=== PATIENT | female | born 1975 | race Caucasian/White ===

== ENCOUNTER → 2022-06-19 15:14 | Outpatient (CLI) | payer BC, SELFPAY ==
--- NOTE | 2022-06-19 15:20 | US_ITS ---
FINAL REPORT CLINICAL HISTORY: PELVIC PAIN FINDINGS: Transvaginal sonographic images of the pelvis were obtained. The study is limited secondary to bowel gas and body habitus. The uterus measures 7.2 x 4.5 x 4.5 cm. The endometrium measures 7 mm, which is within normal limits. No uterine mass is identified. The right ovary measures 2.2 cm in length and left ovary is not seen. Normal blood flow seen to the right ovary. There is a small 1.3 cm probable follicle in the right ovary. There is no evidence of free fluid. IMPRESSION: Probable 1.3 cm follicle in the right ovary. Left ovary not seen due to bowel gas and body habitus. Reviewed, Interpreted and Dictated by Jacob Merrill III, MD Transcribed by Apurva Gray Authenticated and [facility]
== END ==
PROVIDERS: PCP Family Medicine; Visit Provider Family Medicine
DX: R10.2 Pelvic and perineal pain (principal)
CPT/HCPCS: 76830

== ENCOUNTER 2022-12-21 17:21 | Emergency (ER) | payer BC, SELFPAY ==
--- NOTE | 2022-12-21 17:21 | ECG_ITS ---
APPROVED REPORT Exam: Resting ECG HR:101 bpm ECG Measurements Heart Rate 101 AXES MA 134 P 54 QRSd 99 QRS 35 QT 330 T 34 QTc 388 Conclusion SINUS TACHYCARDIA NONSPECIFIC ST & T-WAVE ABNORMALITY ABNORMAL RHYTHM ECG UNCONFIRMED REPORT Electronically signed by : Palomo Townsend MD 12/21/2022 20:04:44
[2022-12-21 17:24] VITALS: BP 153/88; PULSE 93; RESP 16; TEMP 37; O2SAT 99; BMI 40.2
[2022-12-21 17:34] VITALS: BMI 40.2
--- NOTE | 2022-12-21 17:36 | XR_ITS ---
PROCEDURE INFORMATION: Exam: XR Chest Exam date and time: 12/21/2022 5:44 PM Age: 47 years old Clinical indication: Pain; Chest pressure; Additional info: Chest pain TECHNIQUE: Imaging protocol: Radiologic exam of the chest. Views: 1 view. Portable AP exam 5:46 p.m. COMPARISON: No relevant prior studies available. FINDINGS: Lungs: No acute pulmonary findings. No pulmonary consolidation. Lung volumes within normal limits. Pulmonary vessels do not appear congested. Pleural spaces: Unremarkable. No significant pleural effusion. No pneumothorax. Heart/Mediastinum: The cardiac silhouette is normal. Bones/joints: Mild spinal degenerative changes, multilevel disc narrowing and spondylosis. No acute fracture as visualized. Soft tissues: Right upper quadrant abdominal surgical clips. IMPRESSION: No acute findings.
[2022-12-21 18:01] VITALS: BP 128/72; PULSE 90; RESP 18; O2SAT 95
[2022-12-21 18:19] LABS: Basophils # 0.1 K/mm3 (0-0.2); Basophils % 0.6 % (0.1-2.0); Chloride 99 mmol/L (98-107); Eosinophils # 0.2 K/mm3 (0.0-0.4); Eosinophils % 1.8 % (0.1-12.0); Hematocrit 45.6 % (37.0-47.0); Hemoglobin 14.5 g/dL (12.2-16.2); Lymphocytes # 3.4 K/mm3 (0.7-4.5); Lymphocytes % 26.8 % (10-50); Mean Corpuscular HGB Conc 31.9 g/dL (31.8-35.4); Mean Corpuscular Hemoglobin 29.2 pg (27.0-31.2); Mean Corpuscular Volume 91.6 fl (81-99); Mean Platelet Volume 8.1 fl (7.4-10.4); Monocytes # 0.6 K/mm3 (0.1-1.0); Neutrophils # 8.2 K/mm3 (1.8-7.8); Neutrophils % 65.9 % (37.0-80.0); Platelet Count 410 K/mm3 (142-424); Potassium 3.9 mmoL/L (3.5-5.1); Red Blood Count 4.97 M/mm3 (4.20-5.40); Red Cell Distribution Width 12.8 % (11.5-17.5); Sodium 137 mmol/L (136-145); White Blood Count 12.5 K/mm3 (4.8-10.8)
[2022-12-21 18:22] LABS: Anion Gap 12.9 mEq/L (5-15); Blood Urea Nitrogen 11 mg/dl (7-17); Carbon Dioxide 29 mmol/L (22.0-30.0); Creatinine Clearance Estimated 185 mL/min (50-200); Estimated Glomerular Filt Rate 108 ml/min (>60); GFR (African American) 130 ML/MIN (>60)
[2022-12-21 18:23] LABS: Calcium 8.8 mg/dl (8.4-10.2); Glucose 98 mg/dl (74-100)
[2022-12-21 18:30] VITALS: BP 149/88; PULSE 94; O2SAT 100
--- NOTE | 2022-12-21 18:36 | [facility].EDCP ---
Discharge Plan Disposition Patient Disposition: Home, Self-Care Chief Complaint: Chest Pain Prescriptions Prescriptions: No Action buspirone 10 mg tablet 10 mg PO [id number]-ieqqsbjja-AH [Bromfed DM] 2-30-10 mg/5 mL syrup 10 ml PO Q4-6H PRN (Reason: sinus symptoms) Qty: 200 0RF azithromycin [Zithromax Z-Trip] 250 mg tablet 250 mg PO QDAY Qty: 6 0RF Rx Instructions: Take 2 pills the first day and then one tablet per day Referrals Follow up/Referrals: Baylee Resendez MD [Primary Care Provider] - See instructions Clinical Impressions Clinical Impression: Chest pain Discharge ED Provider: Rex Hernández Chest Pain HPI General Chief Complaint: Chest Pain Stated Complaint: chest tightness Time Seen by Provider: 12/21/22 18:42 Mode of Arrival: Ambulatory Source of Information: Patient Limitations: No Limitations Description of Symptoms (Recalled from ER Triage Doc. by RN): pt to the ED with left anterior chest pain x 3 days. pt reports it feels like a heavy weight is on her chest and at times describes a squeezing sensation. History of Present Illness HPI narrative: 47-year-old white female presents with chest heaviness feels like a gripping pain in her chest. It radiates to the back of her neck and is accompanied by nausea without vomiting. She does not really report a lot of dyspnea. She is status post pulmonary embolus of the right lung previously and has factor V Leiden mutation. Patient takes lisinopril for hypertension and has a positive family history for coronary disease and blood clots. She has no known drug allergies Related Data Home Medications Medication Instructions Recorded Confirmed buspirone 10 mg tablet 10 mg PO 06/12/21 06/12/21 Previous Rx's Medication Instructions Recorded azithromycin 250 mg tablet 250 mg PO QDAY #6 tabs 06/12/21 (Zithromax Z-Trip) kgwvojsfzgkamrr-qanglddnjsnwezx-OR 10 ml PO Q4-6H PRN sinus symptoms 06/12/21 2 mg-30 mg-10 mg/5 mL oral syrup #200 mL (Bromfed DM) Allergies Allergy/AdvReac Type Severity Reaction Status Date / Time No Known Allergies Allergy Verified 06/12/21 16:13 [facility] Disclaimer: The information contained in this section may have been updated after the patient was seen, as this information can be updated by other users. Social History Smoking Status: Never smoker alcohol intake: current current occupational status: employed Travel in the last 8 weeks: None ROS Obtained: Yes Systems reviewed as appropriate & no additional complaints except as documented Physical Exam General General appearance: alert and in no apparent distress Head Head exam: atraumatic and normocephalic Eye Eye exam: Present normal appearance, PERRL and EOMI ENT ENT exam: Present normal exam Neck Neck exam: Present normal inspection Respiratory Respiratory exam: Present normal lung sounds bilaterally Cardiovascular Cardiovascular exam: Present regular rate and normal rhythm Abdominal Exam Abdominal exam: Present soft; Absent tenderness Extremities Exam Extremities exam: Present tenderness (Patient has tenderness of the posterior calves up to the popliteal area.) Neurological Exam Neurological exam: Present alert, oriented X3 and CN II-XII intact Medical Decision Making Medical Records MR Comment: 47-year-old white female presents with recurrent chest pain pressure rating to the back of her neck. She has had some nausea with this she also has a history of a right pulmonary embolus and factor V Leiden mutation. The patient is evaluated via EKG this shows no acute changes also CBC CMP troponin I and a D-dimer the D-dimer is slightly elevated at 1.19 and we proceeded with a CT with PE protocol which reveals no clots to the lung. The patient takes a baby aspirin a day to prophylax for the factor V and we have recommended that she follow back up with her primary care if this continues for some further cardiac testin
[2022-12-21 18:41] LABS: Troponin I < 0.01 ng/ml (0.00-0.034)
[2022-12-21 18:49] LABS: HCG Qualitative, Serum Negative (Negative)
[2022-12-21 18:56] LABS: D-Dimer 1.19 ug/mL (0.0-0.5)
[2022-12-21 19:01] VITALS: BP 121/57; PULSE 97; O2SAT 95
--- NOTE | 2022-12-21 19:05 | PC.NURSE ---
rounded on patient, pillow given and lights turned off for comfort. no other needs at this time
--- NOTE | 2022-12-21 19:09 | CT_ITS ---
PROCEDURE INFORMATION: Exam: CTA Chest With Contrast Exam date and time: 12/21/2022 7:24 PM Age: 47 years old Clinical indication: Abnormal findings; Abnormal diagnostic tests; Elevated d-dimer; Additional info: Positive d-dimer history of pulmonary embolus TECHNIQUE: Imaging protocol: Computed tomographic angiography of the chest with contrast. Exam focused on the arteries. 3D rendering (Not supervised by radiologist): MIP and/or 3D reconstructed images were created by the technologist. Radiation optimization: All CT scans at this facility use at least one of these dose optimization techniques: automated exposure control; mA and/or kV adjustment per patient size (includes targeted exams where dose is matched to clinical indication); or iterative reconstruction. Contrast material: ISOVUE 370; Contrast volume: 70 ml; Contrast route: INTRAVENOUS (IV); REPORTING DATA: Count of CT and Cardiac NM exams in prior 12 months: This patient has received 0 known CTs and 0 known cardiac nuclear medicine studies in the 12 months prior to the current study. COMPARISON: CR XR CHEST PORTABLE 12/21/2022 5:44 PM FINDINGS: Pulmonary arteries: No findings of pulmonary emboli. Suboptimal resolution in the lower chest due to motion artifacts/streak artifacts. Aorta: There is no aortic aneurysm. No findings of aortic dissection in the chest. Lungs: Slight dependent atelectasis in the posterior lower lungs. No focal consolidation. No nodules. Motion artifacts in the lower lungs. Pleural spaces: Unremarkable. No significant pleural effusion. No pneumothorax. Heart: The heart is not enlarged. Trace pericardial fluid, no significant pericardial effusion. Heart RV/LV ratio: RV/LV ratio approximate 0.8, within normal limits. There is no reflux of contrast into the IVC or hepatic veins to suggest acute right heart strain. Coronary arteries: No significant coronary artery calcification visualized. Lymph nodes: No significantly enlarged lymph nodes by short axis criteria. Gallbladder and bile ducts: Cholecystectomy clips. No significant biliary dilatation, as visualized. Bones/joints: There are spinal degenerative changes, with mild multilevel disc narrrowing and spondylosis. No acute appearing fracture or high-grade listhesis, as visualized. Soft tissues: There are no soft tissue masses or fluid collections. IMPRESSION: 1. No acute findings. 2. No findings of pulmonary emboli. Motion artifacts. 3. Slight dependent atelectasis in the posterior lungs; no consolidation or vascular congestion. 4. Additional nonemergency and chronic findings as above.
--- NOTE | 2022-12-21 19:57 | PC.NURSE ---
Rounded on patient and updated her on POC. Assisted patient to restroom and back into bed. Pt had no other needs at this time and call talbot within reach.
[2022-12-21 20:48] VITALS: BP 120/66; PULSE 88; RESP 12; TEMP 36.7; O2SAT 98
== END 2022-12-21 20:52 | disposition home or self-care (01) ==
PROVIDERS: Emergency Provider Emergency Medicine; PCP Family Medicine
DX: R07.89 Other chest pain (principal); R11.0 Nausea; D68.51 Activated protein C resistance; I10 Essential (primary) hypertension; R94.31 Abnormal electrocardiogram [ECG] [EKG]
CPT/HCPCS: 71045; 71275; 80048; 84484; 84703; 85025; 85378; 93005; 99285; Q9967

== ENCOUNTER 2022-12-22 11:48 | Day surgery (SDC) | payer BC, SELFPAY ==
[2022-12-22] VITALS (9 sets, daily range): BP systolic 110–158; BP diastolic 73–90; PULSE 79–92; RESP 18–20; O2SAT 97–100; BMI 41.1
--- NOTE | 2022-12-22 11:42 | IR_ITS ---
APPROVED REPORT Patient [facility] Manager: DENIS Velazco RT (R) PROCEDURES Right heart catheterization Left heart catheterization Left ventriculogram Selective coronary angiogram Catheter placement in the pulmonary artery Bilateral pulmonary artery angiogram Informed consent was obtained prior to the procedure. COMPLICATIONS None Estimated Blood Loss: less than 10 ml TECHNIQUE One percent lidocaine used to anesthetize the right anterior aspect of the wrist. The right radial artery was accessed via the Seldinger technique. A 6 Bulgarian sheath was placed in the right radial artery. 150 mg magnesium sulfate, 800 mcg of nitroglycerin, 1mg Lidocaine and 5000 U Heparin were given through the arterial sheath. The papa catheter was also used to perform left heart catheterization, left ventriculogram and selective coronary angiogram. At the end of the procedure the sheath was removed good hemostasis was achieved using Traclet band, patient was transferred to the postop holding area in stable condition. One percent lidocaine was used to anesthetize the right anterior aspect of the neck. A on site services specialist needle was used to identify the right internal jugular vein. Following this a larger cannulation needle was used to cannulate the right internal jugular vein and a wire was passed into the vein. Prior to the 7 Bulgarian sheath being inserted the wire was confirmed under fluoroscopic guidance to be in the inferior vena cava. A 7 Bulgarian sheath was introduced and a Lawton-Chun catheter was floated using hemodynamic waveforms in the pulmonary artery, right ventricle , and right atrium. Saturations were obtained in the pulmonary artery and the right atrium. At the end of the procedure the patient was transferred to the postop holding area in stable condition for sheath removal. ANGIOGRAPHIC RESULTS The left main artery Normal The left anterior descending artery Normal The circumflex artery Dominant normal The right coronary artery Vestigial normal The BOOTHE ventriculogram reveals Slightly hyperdynamic at 70% The left ventricular end-diastolic pressure 15 mmHg Main pulmonary artery is widely patent Right pulmonary artery widely patent as are all segments, subsegments and distal branches with excellent distal perfusion Left pulmonary artery widely patent as are all segments, subsegments and distal branches with excellent distal perfusion Right atrial pressure 12 mmHg Pulmonary artery pressure 40/20 mmHg Pulmonary occlusion pressure 15 mmHg Hemoglobin 14.5 Aortic saturation 98% Right atrial saturation 87% Pulmonary artery saturation 89% Cardiac output 15.5 Cardiac index 7.7 IMPRESSION Normal coronary arteries Slightly hyperdynamic ventricle consistent with diastolic dysfunction Moderate pulmonary hypertension Pulmonary filling pressures consistent with diastolic dysfunction Normal pulmonary arteries with no angiographic evidence of pulmonary emboli PLAN 1. Bisoprolol 10 mg daily 2. Lasix 40 mg daily 3. Spironolactone 50 mg daily 4. I discussed the case with metal cleaner as well as reviewed CT scan findings. At this point there appears to be no evidence of infection or pulmonary embolism. Will empirically treat diastolic dysfunction 5. Restart Xarelto 20 mg daily for factor V Leiden deficiency 6. Return to clinic on Sunday or Sunday for follow-up Electronically signed by : Malvin Hercules MD 12/22/2022 14:20:13
[2022-12-22 12:27] LABS: Basophils # 0.1 K/mm3 (0-0.2); Basophils % 0.5 % (0.1-2.0); Eosinophils # 0.2 K/mm3 (0.0-0.4); Eosinophils % 1.8 % (0.1-12.0); Hematocrit 43.1 % (37.0-47.0); Hemoglobin 13.9 g/dL (12.2-16.2); Lymphocytes # 3.6 K/mm3 (0.7-4.5); Lymphocytes % 29.8 % (10-50); Mean Corpuscular HGB Conc 32.1 g/dL (31.8-35.4); Mean Corpuscular Volume 90.2 fl (81-99); Mean Platelet Volume 7.6 fl (7.4-10.4); Monocytes # 0.7 K/mm3 (0.1-1.0); Monocytes % 5.4 % (1.7-9.3); Neutrophils # 7.5 K/mm3 (1.8-7.8); Neutrophils % 62.4 % (37.0-80.0); Platelet Count 385 K/mm3 (142-424); Red Blood Count 4.78 M/mm3 (4.20-5.40); Red Cell Distribution Width 12.9 % (11.5-17.5)
[2022-12-22 12:34] LABS: Chloride 100 mmol/L (98-107); Potassium 3.6 mmoL/L (3.5-5.1); Sodium 138 mmol/L (136-145)
[2022-12-22 12:37] LABS: Blood Urea Nitrogen 12 mg/dl (7-17); Creatinine Clearance Estimated 189 mL/min (50-200); Estimated Glomerular Filt Rate 108 ml/min (>60); GFR (African American) 130 ML/MIN (>60)
[2022-12-22 12:38] LABS: Anion Gap 13.6 mEq/L (5-15); Calcium 8.8 mg/dl (8.4-10.2); Carbon Dioxide 28 mmol/L (22.0-30.0); Glucose 93 mg/dl (74-100)
[2022-12-22 12:41] LABS: INR 0.96 (0.9-1.1); Prothrombin Time 10.4 seconds (10.1-12.5)
[2022-12-22 13:17] LABS: HCG Qualitative, Serum Negative (Negative)
[2022-12-22 14:14] LABS: CATHL Arterial O2 SAT 89.8 % (90-100); CATHL Venous O2 SAT 87.2 % (75-80)
== END 2022-12-22 15:52 | disposition home or self-care (01) ==
PROVIDERS: PCP Family Medicine; Visit Provider Internal Medicine
DX: I27.24 Chronic thromboembolic pulmonary hypertension (principal); D68.51 Activated protein C resistance; I20.0 Unstable angina; R55 Syncope and collapse; R94.31 Abnormal electrocardiogram [ECG] [EKG]; I10 Essential (primary) hypertension; Z79.899 Other long term (current) drug therapy; I27.82 Chronic pulmonary embolism
CPT/HCPCS: 80048; 82810; 84703; 85025; 85610; 93460; 93566; 99152; 99153; C1725; C1769; C1894; J1644; Q9967

== ENCOUNTER → 2023-01-25 14:58 | Outpatient (CLI) | payer BC, SELFPAY | PROVIDERS: PCP Family Medicine; Visit Provider Internal Medicine | DX: G47.30 Sleep apnea, unspecified (principal); R40.0 Somnolence; R06.83 Snoring; R06.00 Dyspnea, unspecified; R42 Dizziness and giddiness; R94.31 Abnormal electrocardiogram [ECG] [EKG] | CPT/HCPCS: G0399 ==

== ENCOUNTER → 2023-02-22 15:37 | Outpatient (CLI) | payer BC, SELFPAY ==
[2023-02-22 17:14] LABS: Anion Gap 13.6 mEq/L (5-15); Blood Urea Nitrogen 14 mg/dl (7-17); Carbon Dioxide 26 mmol/L (22.0-30.0); Chloride 104 mmol/L (98-107); Estimated Glomerular Filt Rate 90 ml/min (>60); GFR (African American) 109 ML/MIN (>60); Glucose 94 mg/dl (74-100); Potassium 4.6 mmoL/L (3.5-5.1); Sodium 139 mmol/L (136-145)
== END ==
PROVIDERS: Internal Medicine; PCP Family Medicine; Visit Provider Physician Assistant
DX: I27.20 Pulmonary hypertension, unspecified (principal); D68.51 Activated protein C resistance; I51.89 Other ill-defined heart diseases; R40.0 Somnolence
CPT/HCPCS: 36415; 80048

== ENCOUNTER → 2023-04-24 10:22 | Outpatient (CLI) | payer BC, SELFPAY ==
--- NOTE | 2023-04-24 10:33 | US_ITS ---
PROCEDURE: US TRANSVAGINAL CLINICAL INDICATION: chronic pelvic pain and abnormal uterine bleeding COMPARISON: No exams were available for comparison FINDINGS: Transabdominal sonographic images of the pelvis were obtained. UTERUS: 8.0 cm x 4.4 cmx 5.3 cm with a combined endometrial thickness of 4.6mm. Uterus is retroverted and bulky. There are multiple nabothian cysts within the cervix. The largest is 1.0 cm x 0.8 cm. There is a posterior fibroid measuring 1.3 cm x 0.7 cm x 1.2 cm. LEFT OVARY: 2.6 cmx1.7 cm x1.5cm with a volume of 3.4ml. Within the left ovary there is a follicle measuring 1.2 cm x 2.0 cm. The left ovary sits close to the uterus. RIGHT OVARY: 3.8 cmx 2.6 cmx2.9 cm with a volume of 14.9ml. There is a cystic structure adjacent to the ovary measuring 1.6 cm x 1.3 cm x 1.3 cm. Within the cyst is a coil like structure, possibly Essure? Both ovaries are seen and appear normal. Doppler flow to both ovaries are seen. There is no fluid in the cul-de-sac. IMPRESSION: 1. Uterus is retroverted and bulky. There is a 1.3 cm posterior fibroid. 2. There are multiple nabothian cysts within the cervix. 3. Both ovaries are seen and appear normal. There is a cystic area adjacent to the right ovary and within this cyst is a small coil, possibly Essure. 4. No fluid in the cul-de-sac. 5. Difficult exam. Dictated by: Jose M Espinosa MD 04/24/2023 15:06 Jose M Espinosa MD in [facility] 04/24/2023 15:06
[2023-04-24 11:58] LABS: Hemoglobin A1C 5.3 % (4.0-6.0)
[2023-04-24 12:22] LABS: Thyroid Stimulating Hormone 1.02 uIU/mL (0.465-4.68)
== END ==
PROVIDERS: PCP Family Medicine; Visit Provider Obstetrics & Gynecology
DX: N93.9 Abnormal uterine and vaginal bleeding, unspecified (principal); R10.2 Pelvic and perineal pain; G89.29 Other chronic pain
CPT/HCPCS: 36415; 76830; 83036; 84443

== ENCOUNTER 2023-08-22 12:07 | Outpatient (CLI) | payer BC, SELFPAY ==
--- NOTE | 2023-08-22 12:10 | XR_ITS ---
FINAL REPORT TECHNIQUE: Chest PA & Lateral CLINICAL HISTORY: diastolic dysfunction FINDINGS: 2 views of the chest were performed. The heart size is normal. The mediastinum is within normal limits. There is no acute cardiopulmonary process. There are no pleural effusions. There is no pneumothorax. The bony thorax appears intact. IMPRESSION: No acute cardiopulmonary process. Reviewed, Interpreted and Dictated by Rohan Chung MD Transcribed by Erica Ordoñez Authenticated and [facility]
== END 2023-08-22 23:59 ==
LOC: RAD 12:09
PROVIDERS: PCP Family Medicine; Visit Provider Internal Medicine
DX: D68.51 Activated protein C resistance (principal); I27.20 Pulmonary hypertension, unspecified; I51.89 Other ill-defined heart diseases; R94.31 Abnormal electrocardiogram [ECG] [EKG]; Z86.711 Personal history of pulmonary embolism
CPT/HCPCS: 71046

== ENCOUNTER 2023-09-05 08:02 | Outpatient (CLI) | payer BC, SELFPAY ==
--- NOTE | 2023-09-05 08:04 | CA_ITS ---
APPROVED REPORT EXAM: Comprehensive 2D, Doppler, and color-flow Echocardiogram Topographical Engineer: Shelby Burgess RVT Ht: 5 ft 2 in Wt: 201lbs BSA: 1.92 BP: 109/46 mmHg Indications: ABN EKG,PHTN,HX PE,HTN,BUBBLE STUDY Echo Enhancing Agent Indication: Rule out Shunt Agent(s) / Amount(s) Used: Agitated Saline 8 cc 2D Dimensions LA Volume 38.80 mL LA Volume Index 20.21 mL/m2 (M/F) 16-34 M-Mode Dimensions RVDd 2.79 cm (0.9-2.6) LA Diam 3.25 cm (1.9-4.0) LVDd 5.07 cm (3.5-5.7) LVDs 2.96 cm (3.5-5.7) IVSd 1.18 cm (0.6-1.1) PWd 0.39 cm (0.6-1.1) EF (Teich) 72.20% FS 41.60% EDV (Teich) 122.10 mL TAPSE 2.48 (<1.7) ESV (Teich) 33.90 mL LV Diastology E Decel Time 150 (160-240 msec) E/A Ratio 1.7 Aortic Valve FELICITA Index 1.18 cm2/m2 AoV Peak Charles. 176.0 (50-130 cm/s) AO Peak GR. 12.40 mmHg AO Mean GR. 7.20 (<5 mmHg) AO VTI 37.7 (18-25 cm) FELICITA (VTI) 2.32 (2.5-4.5 cm2) Mitral Valve MV E Max Charles. 82.0 (40-130 cm/s) MV A Velocity 47.0 (40-130 cm/s) E/A Ratio 1.72 MV PHT 44.0 ms Pulmonary Valve PV Peak Velocity 93.0 (50-150 cm/s) Tricuspid Valve TR P. Velocity 248.00 cm/s RAP Estimate 10.00 mmHg RVSP 34.60 mmHg Left Ventricle The left ventricle is normal size. The left ventricular systolic function is normal. The left ventricular ejection fraction is within the normal range. There is normal left ventricular wall thickness. There is normal LV segmental wall motion. The left ventricular diastolic function is normal. LVEF is 60%. Right Ventricle The right ventricle is normal size. The right ventricular systolic function is normal. Atria The left atrium size is normal. The right atrium size is normal. There is no Doppler evidence of interatrial shunt. Aortic Valve The aortic valve opens well. There is no aortic valvular stenosis. No aortic regurgitation is present. Mitral Valve The mitral valve is normal in structure. No evidence of mitral valve stenosis. There is no mitral valve regurgitation noted. Tricuspid Valve The tricuspid valve leaflets are thin and pliable. Trace tricuspid regurgitation. There is insufficient TR jet to estimate RVSP. Pulmonic Valve The pulmonary valve is normal in structure. Trace pulmonic regurgitation. Great Vessels The aortic root is normal in size. The ascending aorta is not well-visualized. IVC is normal in size and collapses >50% with inspiration. Pericardium There is no pericardial effusion. Other Information Study Quality: Adequate Conclusion Normal biventricular systolic function. No significant valvular stenosis or regurgitation. Electronically signed by : Candida Matos MD 09/08/2023 00:26:38
== END 2023-09-05 23:59 ==
LOC: RT 08:04
PROVIDERS: PCP Family Medicine; Visit Provider Internal Medicine
DX: R06.00 Dyspnea, unspecified (principal); R07.9 Chest pain, unspecified; R94.31 Abnormal electrocardiogram [ECG] [EKG]; R55 Syncope and collapse; R42 Dizziness and giddiness; I27.20 Pulmonary hypertension, unspecified; D68.51 Activated protein C resistance; Z86.711 Personal history of pulmonary embolism
CPT/HCPCS: 93306

== ENCOUNTER 2024-01-14 13:49 | Outpatient (CLI) | payer BC, SELFPAY | END 2024-01-14 23:59 | disposition home or self-care (01) | LOC: RAD 13:51 | PROVIDERS: PCP Family Medicine; Visit Provider Nurse Practitioner Family | DX: J40 Bronchitis, not specified as acute or chronic (principal) ==

== ENCOUNTER 2024-01-14 14:12 | Emergency (ER) | payer BC, SELFPAY ==
--- NOTE | 2024-01-14 14:12 | ECG_ITS ---
APPROVED REPORT Exam: Resting ECG HR:78 bpm ECG Measurements Heart Rate 78 AXES TX 124 P 45 QRSd 98 QRS 45 QT 395 T 18 QTc 428 Conclusion SINUS RHYTHM NONSPECIFIC T-WAVE ABNORMALITY BORDERLINE ECG Electronically signed by : JOHNSON GUO, 01/14/2024 22:48:51
[2024-01-14 14:13] VITALS: BP 156/96; PULSE 80; RESP 20; TEMP 36.7; O2SAT 98; BMI 38.4
--- NOTE | 2024-01-14 14:19 | ED_ITS ---
Discharge Plan Disposition Patient Disposition: Home, Self-Care Condition: Good Prescriptions Prescriptions: New doxycycline hyclate 100 mg capsule 100 mg PO BID 14 Days Qty: 28 0RF No Action ascorbic acid (vitamin C) 500 mg capsule, extended release 500 mg PO DAILY aspirin 81 mg tablet 81 mg PO DAILY fluticasone propionate 50 mcg/actuation spray,suspension intranasal cholecalciferol (vitamin D3) 10 mcg (400 unit) capsule 10 mcg PO DAILY bisoprolol fumarate 10 mg tablet See Rx Instructions .ROUTE .COMPLEX Qty: 90 1RF Dose Instruction: Take 1 tablet by mouth once daily Rx Instructions: Take 1 tablet by mouth once daily furosemide [Lasix] 40 mg tablet 20 mg PO DAILY Qty: 30 5RF isosorbide mononitrate 30 mg tablet extended release 24 hr 30 mg PO DAILY Qty: 30 6RF lisinopril 5 mg tablet 5 mg PO DAILY Qty: 30 5RF pantoprazole [Protonix] 40 mg tablet,delayed release (DR/EC) 40 mg PO DAILY Qty: 30 5RF Xarelto 20 mg tablet 20 mg PO DAILY Qty: 30 3RF Rx Instructions: must administer with evening meal ranolazine 500 mg tablet extended release 12 hr 500 mg PO BID Qty: 60 5RF spironolactone [Aldactone] 50 mg tablet 50 mg PO DAILY Qty: 30 3RF fexofenadine 180 mg tablet 180 mg PO DAILY PRN Xarelto 20 mg tablet 0RF Referrals Follow up/Referrals: Baylee Resendez MD [Primary Care Provider] - See instructions Malvin Hercules MD [Staff Physician] - See instructions Activity Restrictions/Add. Instructions Additional Instructions/Restrictions: Please continue omeprazole twice a day as we discussed. I have referred you both to gastroenterology for an upper endoscopy as well as cardiology for further workup. Follow-up with your PCP for any worsening signs or symptoms or return to ER as needed Clinical Impressions Clinical Impression: Community acquired pneumonia Qualifiers: Laterality: left Lung location: lower lobe of lung Qualified Code(s): J18.9 - Pneumonia, unspecified organism Chest pain Qualifiers: Chest pain type: unspecified Qualified Code(s): R07.9 - Chest pain, unspecified Stand Alone Forms Stand Alone Forms: Work/School Release Instructions Patient Instructions: DI for Pneumonia -- Adult Discharge ED Provider: Refugio Viera General Adult HPI <JOSUÉ Kiser - Last Filed: 01/14/24 17:35> General Chief complaint: Syncope Stated complaint: Syncopy Time Seen by Provider: 01/14/24 14:19 History of Present Illness HPI narrative: Patient presents for evaluation of a near syncopal event. Patient gives a week history of productive cough bilateral anterior chest pain subjective weakness no fevers chills hemoptysis hematochezia melena hematemesis hematuria. Patient has a cardiovascular history and follows with Dr. Hercules. Patient was seen by her PCP today and diagnosed with bronchitis and sent for chest x-ray. While at the radiology window patient had a near syncopal event feeling very lightheaded. Patient states that she did not completely pass out however rapid response was called. Patient brought to the emergency department for further evaluation. On the time of my exam patient's Glascow coma score is 15 and reports that she is still having bilateral anterior chest pain but no chills hemoptysis hematochezia melena hematemesis hematuria vomiting or diarrhea but some associated nausea and shortness of breath when coughing. Related Data Home Medications Medication Instructions Recorded Confirmed ascorbic acid (vitamin C) 500 mg 500 mg PO DAILY Supplement 12/22/22 08/22/23 capsule,extended release aspirin 81 mg tablet 81 mg PO DAILY Heart disease 12/22/22 08/22/23 fexofenadine 180 mg tablet 180 mg PO DAILY PRN 04/09/23 08/22/23 cholecalciferol (vitamin D3) 10 10 mcg PO DAILY 08/22/23 08/22/23 mcg (400 unit) capsule fluticasone propionate 50 intranasal 08/22/23 08/22/23 mcg/actuation nasal spray,suspension Previous Rx's Medication Instructions Recorded bisoprolol fumarate 10 mg tablet See Rx Instructions .Route 08/22/23 .COMPLEX #90 tabs furosemide 40 mg tablet (Lasix) 20 mg (1/2 x 40 mg) PO DAILY #30 08/22/23 tabs isosorbide mononitrate 30 mg 30 mg PO DAILY #30 tabs 08/22/23 tablet,extended release 24 hr lisinopril 5 mg tablet 5 mg PO DAILY htn #30 tabs 08/22/23 pantoprazole 40 mg tablet,delayed 40 mg PO DAILY #30 tabs 08/22/23 release (Protonix) ranolazine 500 mg tablet,extended 500 mg PO BID #60 tabs 08/22/23 release,12 hr rivaroxaban 20 mg tablet (Xarelto) 20 mg PO DAILY #30 tabs 08/22/23 spironolactone 50 mg tablet 50 mg PO DAILY #30 tabs 08/22/23 (Aldactone) doxycycline hyclate 100 mg capsule 100 mg PO BID 14 days #28 caps 01/14/24 Allergies Allergy/AdvReac Type Severity Reaction Status Date / Time No Known Allergies Allergy Verified 08/22/23 11:39 [facility] <JOSUÉ Kiser - Last Filed: 01/14/24 17:35> [facility] Disclaimer: The information contained in this section may have been updated after the patient was seen, as this information can be updated by other users. Medical History Abnormal uterine bleeding Chronic pelvic pain in female Dizziness HTN (hypertension) Surgical History H/O dilation and curettage 2002 History of bilateral carpal tunnel release History of cholecystectomy History of tonsillectomy Family History Other Bleeding disorder Cancer Diabetes FHx: mental illness Heart attack Hyperlipidemia Hypertension Stroke Social History Smoking Status: Never smoker alcohol intake: current alcohol intake frequency: holidays/special occasions only current occupational status: employed Travel in the last 8 weeks: Inside the [place] <JOSUÉ Kiser - Last Filed: 01/14/24 17:35> ROS Obtained: Yes Systems reviewed as appropriate & no additional complaints except as documented Physical Exam <JOSUÉ Kiser - Last Filed: 01/14/24 17:35> General General appearance: alert and in no apparent distress Head Head exam: atraumatic and normal inspection Eye Eye exam: Present normal appearance and EOMI ENT ENT exam: Present normal exam, normal oropharynx and mucous membranes moist Neck Neck exam: Present normal inspection and full ROM; Absent lymphadenopathy Chest Chest inspection: Present normal inspection and symmetric chest wall rise; Absent tenderness Respiratory Respiratory exam: Present normal lung sounds bilaterally; Absent respiratory distress, wheezes, stridor or accessory muscle use Cardiovascular Cardiovascular exam: Present regular rate, normal rhythm and normal heart sounds Abdominal Exam Abdominal exam: Present soft and normal bowel sounds; Absent tenderness, guarding, rebound or rigidity Extremities Exam Extremities exam: Present normal inspection and full ROM Back Exam Back exam: Present normal inspection and full ROM Neurological Exam Neurological exam: Present alert, oriented X3 and CN II-XII intact Psychiatric Psychiatric exam: Present normal affect and normal mood Skin Skin exam: Present warm, dry and normal color Medical Decision Making <JOSUÉ Kiser - Last Filed: 01/14/24 17:35> Medical Records Medical records reviewed: Yes I reviewed the patient's medical records. Zane Inquiry Pt receiving controlled substance: No Vital Signs: 01/14/24 14:13 01/14/24 14:30 01/14/24 15:00 Temperature 98.0 F Temperature Source Oral Pulse Rate 80 79 Pulse Rate [Radial] 80 Respiratory Rate 20 23 17 Blood Pressure 114/74 130/76 Blood Pressure [Left Arm] 156/96 H Blood Pressure Mean [Left Arm] 116 Blood Pressure Source [Left Arm] Automatic Cuff Blood Pressure Position [Left Arm] Sitting 02 Sat by Pulse Oximetry 98 97 99 Oxygen Delivery Method Room Air Room Air Room Air Lab Data Lab results reviewed: Yes I reviewed the patient's lab results. Lab Results 01/14/24 14:15: WBC 9.3, RBC 4.66, Hgb 14.5, Hct 45.0, MCV 96.4, MCH 31.1, MCHC 32.3, RDW 13.4, Plt Count 321, MPV 7.3 L, Neut % (Auto) 80.5 H, Lymph % (Auto) 13.6, [place] % (Auto) 4.4, Eos % (Auto) 0.7, Baso % (Auto) 0.6, Neut # (Auto) 7.5, Lymph # (Auto) 1.3, [place] # (Auto) 0.4, Eos # (Auto) 0.1, Baso # (Auto) 0.1, PT 13.5 H, INR 1.23 H, Sodium 138, Potassium 4.2, Chloride 105, Carbon Dioxide 26, Anion Gap 11.2, BUN 16, Creatinine 0.80, Estimated GFR 77, Est GFR ( Amer) 93, Glucose 116 H, Calcium 9.4, Magnesium 1.8, Total Bilirubin 0.7, AST 36, ALT 23, Alkaline Phosphatase 91, Troponin I < 0.01, NT-Pro-B Natriuret Pep 70.6, Total Protein 8.2, Albumin 4.6, Globulin 3.6 H, Albumin/Globulin Ratio 1.3, TSH 1.08, Free T4 Index 2.1 L, Thyroxine (T4) 7.5, T3 Uptake 28, Serum HCG, Qual Negative 01/14/24 14:46: VBG pH 7.35, VBG pCO2 48.6, VBG pO2 32.6, VBG HCO3 26.0, VBG Total CO2 27.5 H, VBG O2 Saturation 60.5, VBG Base Excess 0.3, VBG Lactic Acid 1.9 01/14/24 15:31: Urine Color Yellow, Urine Appearance Clear, Urine pH 6.0, Ur Specific [place] 1.025, Urine Protein Negative, Urine Glucose (UA) Negative, Urine Ketones Negative, Urine Blood Negative, Urine Nitrate Negative, Urine Bilirubin Negative, Urine Urobilinogen 0.2, Ur Leukocyte Esterase Negative, Urine RBC None, Urine WBC Occasional, Ur Squamous Epith Cells Occasional, Urine Bacteria Trace, Urine Mucus 1+ 01/14/24 14:15 01/14/24 14:15 Orders (Tests/Meds): ED MEDICATIONS Generic Name Dose Route Start Last Admin Trade Name Freq PRN Reason Stop Dose Admin Azithromycin 500 mg/ Sodium 250 mls @ 250 mls/hr 01/14/24 15:45 01/14/24 17:29 Chloride IV 01/24/24 15:44 250 mls/hr Q24H JESSICA Administration Ceftriaxone Sodium 1 gm/ 50 mls @ 100 mls/hr 01/14/24 15:45 01/14/24 17:30 Sodium Chloride IV 01/24/24 15:44 100 mls/hr Q24H JESSICA Administration Discontinued Medications Generic Name Dose Route Start Last Admin Trade Name Freq PRN Reason Stop Dose Admin Acetaminophen 1,000 mg 01/14/24 14:20 01/14/24 14:55 Acetaminophen 1,000mg/100ml Vial IV 01/14/24 14:21 1,000 mg ONCE ONE Administration Albuterol/Ipratropium 3 ml 01/14/24 14:20 01/14/24 14:54 Ipratropium/Albuterol 3 Ml Neb IH 01/14/24 14:21 3 ml ONCE ONE Administration Belladonna Alkaloids 60 ml 01/14/24 14:20 01/14/24 14:55 Belladonna Alkaloids 60 Ml Ml PO 01/14/24 14:21 60 ml ONCE ONE Administration Dexamethasone Sodium Phosphate 10 mg 01/14/24 14:20 01/14/24 14:55 Dexamethasone 4mg/Ml 5ml Mdv IV 01/14/24 14:21 10 mg ONCE ONE Administration Sodium Chloride 500 mls @ 999 mls/hr 01/14/24 14:20 01/14/24 14:55 Sod Chlor 0.9% 1000ml Bag IV 01/14/24 14:50 999 mls/hr .Q31M ONE Administration Iopamidol 70 ml 01/14/24 15:20 01/14/24 15:21 Iopamidol-370 (76%);100ml Bottle IV 01/14/24 15:21 70 ml ONCE ONE Administration Ondansetron HCl 4 mg 01/14/24 14:25 01/14/24 14:55 Ondansetron 4mg/2ml Vial IV 01/14/24 14:26 4 mg ONCE ONE Administration Sodium Chloride 10 ml 01/14/24 15:20 01/14/24 15:21 Sodium Chloride 0.9% 10ml Syr (Rad Only) IV 01/14/24 15:21 10 ml ONCE ONE Administration Sodium Chloride 50 ml 01/14/24 15:20 01/14/24 15:21 0.9 % Sodium Chloride 50 Ml Vial IV 01/14/24 15:21 50 ml ONCE ONE Administration ORDERS Category Date Time Status CT angio chest PE protocol Stat Cat Scan 01/14/24 14:24 Completed BNP [NT Pro Brain Natriuretic Pep.] Stat Lab 01/14/24 14:15 Completed CBC w/Auto Diff [Complete Blood Count Auto Diff] Stat Lab 01/14/24 14:15 Completed CMP [Comprehensive Metabolic Panel] Stat Lab 01/14/24 14:15 Completed Full Resp Panel w/COVID ([facility]) Routine Lab 01/14/24 14:45 Received HCG Qualitative, Serum Stat Lab 01/14/24 14:15 Completed INR [Prothrombin Time INR] Stat Lab 01/14/24 14:15 Completed Magnesium Stat Lab 01/14/24 14:15 Completed Thyroid Panel Stat Lab 01/14/24 14:15 Completed Trop I [Troponin I] Stat Lab 01/14/24 14:15 Completed Troponin I Q3H Lab 01/14/24 20:30 Ordered UA [Urinalysis and Microscopic] Stat Lab 01/14/24 15:31 Completed VBG [Venous Blood Gas] Stat RT 01/14/24 14:46 Completed HEART Score History (anamnesis): Slightly suspicious Age: 45-65 years Risk factors: 3 or more risk factors Troponin: </= normal limit HEART Score: 3 Medical Decision Narrative: In summary patient is a 48-year-old female who presents to the emergency department for evaluation of near syncope cough and chest pain. Patient is hemodynamically stable upon arrival, afebrile. Physical exam is unremarkable including nonreproducible anterior bilateral chest pain, normal breath sounds, normal heart sounds, no abdominal pain. Eunice Coma Score 15. Differential diagnosis includes vasovagal syncope, hypoxia, influenza, PE, ACS etc. Initial workup will be conducted with hematologic labs CTA PE protocol urinalysis full respiratory swab. Initial interventions include crystalloid bolus Toradol Tylenol GI cocktail DuoNeb and Decadron. Initial workup reviewed by me shows that her white count is normal and the remainder of her hematologic labs are nonactionable however my informal interpretation of her CT scan shows a right lower lobe infiltrate consistent with pneumonia. Upon repeat evaluation patient reported resolution of her symptoms after initial intervention. The patient was placed in observation status at 1530. Medical necessity for observational status is serial troponins. The patient was provided serial reevaluations continuous cardiac monitoring and pulse oximetry while awaiting results. As patient did not have a full syncopal event and has no chest pain and has remained so in the ER second troponin was canceled. Because of these results patient received IV antibiotics in the emergency department and then prescription for doxycycline was sent to her pharmacy. Patient was ambulatory without syncope or symptoms prior to discharge. Total time in observation was 2 hours. <Refugio Viera MD - Last Filed: 01/14/24 18:01> Vital Signs: 01/14/24 14:13 01/14/24 14:30 01/14/24 15:00 Temperature 98.0 F Temperature Source Oral Pulse Rate 80 79 Pulse Rate [Radial] 80 Respiratory Rate 20 23 17 Blood Pressure 114/74 130/76 Blood Pressure [Left Arm] 156/96 H Blood Pressure Mean [Left Arm] 116 Blood Pressure Source [Left Arm] Automatic Cuff Blood Pressure Position [Left Arm] Sitting 02 Sat by Pulse Oximetry 98 97 99 Oxygen Delivery Method Room Air Room Air Room Air Lab Data Lab Results 01/14/24 14:15: WBC 9.3, RBC 4.66, Hgb 14.5, Hct 45.0, MCV 96.4, MCH 31.1, MCHC 32.3, RDW 13.4, Plt Count 321, MPV 7.3 L, Neut % (Auto) 80.5 H, Lymph % (Auto) 13.6, [place] % (Auto) 4.4, Eos % (Auto) 0.7, Baso % (Auto) 0.6, Neut # (Auto) 7.5, Lymph # (Auto) 1.3, [place] # (Auto) 0.4, Eos # (Auto) 0.1, Baso # (Auto) 0.1, PT 13.5 H, INR 1.23 H, Sodium 138, Potassium 4.2, Chloride 105, Carbon Dioxide 26, Anion Gap 11.2, BUN 16, Creatinine 0.80, Estimated GFR 77, Est GFR ( Amer) 93, Glucose 116 H, Calcium 9.4, Magnesium 1.8, Total Bilirubin 0.7, AST 36, ALT 23, Alkaline Phosphatase 91, Troponin I < 0.01, NT-Pro-B Natriuret Pep 70.6, Total Protein 8.2, Albumin 4.6, Globulin 3.6 H, Albumin/Globulin Ratio 1.3, TSH 1.08, Free T4 Index 2.1 L, Thyroxine (T4) 7.5, T3 Uptake 28, Serum HCG, Qual Negative 01/14/24 14:46: VBG pH 7.35, VBG pCO2 48.6, VBG pO2 32.6, VBG HCO3 26.0, VBG Total CO2 27.5 H, VBG O2 Saturation 60.5, VBG Base Excess 0.3, VBG Lactic Acid 1.9 01/14/24 15:31: Urine Color Yellow, Urine Appearance Clear, Urine pH 6.0, Ur Specific [place] 1.025, Urine Protein Negative, Urine Glucose (UA) Negative, Urine Ketones Negative, Urine Blood Negative, Urine Nitrate Negative, Urine Bilirubin Negative, Urine Urobilinogen 0.2, Ur Leukocyte Esterase Negative, Urine RBC None, Urine WBC Occasional, Ur Squamous Epith Cells Occasional, Urine Bacteria Trace, Urine Mucus 1+ Orders (Tests/Meds): ED MEDICATIONS Generic Name Dose Route Start Last Admin Trade Name Lorenzo PRN Reason Stop Dose Admin Azithromycin 500 mg/ Sodium 250 mls @ 250 mls/hr 01/14/24 15:45 01/14/24 17:29 Chloride IV 01/24/24 15:44 250 mls/hr Q24H JESSICA Administration Ceftriaxone Sodium 1 gm/ 50 mls @ 100 mls/hr 01/14/24 15:45 01/14/24 17:30 Sodium Chloride IV 01/24/24 15:44 100 mls/hr Q24H JESSICA Administration Discontinued Medications Generic Name Dose Route Start Last Admin Trade Name Rangelq PRN Reason Stop Dose Admin Acetaminophen 1,000 mg 01/14/24 14:20 01/14/24 14:55 Acetaminophen 1,000mg/100ml Vial IV 01/14/24 14:21 1,000 mg ONCE ONE Administration Albuterol/Ipratropium 3 ml 01/14/24 14:20 01/14/24 14:54 Ipratropium/Albuterol 3 Ml Neb IH 01/14/24 14:21 3 ml ONCE ONE Administration Belladonna Alkaloids 60 ml 01/14/24 14:20 01/14/24 14:55 Belladonna Alkaloids 60 Ml Ml PO 01/14/24 14:21 60 ml ONCE ONE Administration Dexamethasone Sodium Phosphate 10 mg 01/14/24 14:20 01/14/24 14:55 Dexamethasone 4mg/Ml 5ml Mdv IV 01/14/24 14:21 10 mg ONCE ONE Administration Sodium Chloride 500 mls @ 999 mls/hr 01/14/24 14:20 01/14/24 14:55 Sod Chlor 0.9% 1000ml Bag IV 01/14/24 14:50 999 mls/hr .Q31M ONE Administration Iopamidol 70 ml 01/14/24 15:20 01/14/24 15:21 Iopamidol-370 (76%);100ml Bottle IV 01/14/24 15:21 70 ml ONCE ONE Administration Ondansetron HCl 4 mg 01/14/24 14:25 01/14/24 14:55 Ondansetron 4mg/2ml Vial IV 01/14/24 14:26 4 mg ONCE ONE Administration Sodium Chloride 10 ml 01/14/24 15:20 01/14/24 15:21 Sodium Chloride 0.9% 10ml Syr (Rad Only) IV 01/14/24 15:21 10 ml ONCE ONE Administration Sodium Chloride 50 ml 01/14/24 15:20 01/14/24 15:21 0.9 % Sodium Chloride 50 Ml Vial IV 01/14/24 15:21 50 ml ONCE ONE Administration ORDERS Category Date Time Status CT angio chest PE protocol Stat Cat Scan 01/14/24 14:24 Completed BNP [NT Pro Brain Natriuretic Pep.] Stat Lab 01/14/24 14:15 Completed CBC w/Auto Diff [Complete Blood Count Auto Diff] Stat Lab 01/14/24 14:15 Completed CMP [Comprehensive Metabolic Panel] Stat Lab 01/14/24 14:15 Completed Full Resp Panel w/COVID ([facility]) Routine Lab 01/14/24 14:45 Received HCG Qualitative, Serum Stat Lab 01/14/24 14:15 Completed INR [Prothrombin Time INR] Stat Lab 01/14/24 14:15 Completed Magnesium Stat Lab 01/14/24 14:15 Completed Thyroid Panel Stat Lab 01/14/24 14:15 Completed Trop I [Troponin I] Stat Lab 01/14/24 14:15 Completed Troponin I Q3H Lab 01/14/24 20:30 Ordered UA [Urinalysis and Microscopic] Stat Lab 01/14/24 15:31 Completed VBG [Venous Blood Gas] Stat RT 01/14/24 14:46 Completed ECG Data Tracing #1: Independently interpreted by me rate is 78, rhythm is regular, axis is normal, no ST elevation in anatomical contiguous leads, QTc 428 HEART Score ECG: Normal HEART Score: 3 Medical Decision Narrative: In summary patient is a 48-year-old female who presents to the emergency department for evaluation of near syncope cough and chest pain. Patient is hemodynamically stable upon arrival, afebrile. Physical exam is unremarkable including nonreproducible anterior bilateral chest pain, normal breath sounds, normal heart sounds, no abdominal pain. Sadaf Coma Score 15. Differential diagnosis includes vasovagal syncope, hypoxia, influenza, PE, ACS etc. Initial workup will be conducted with hematologic labs CTA PE protocol urinalysis full respiratory swab. Initial interventions include crystalloid bolus Toradol Tylenol GI cocktail DuoNeb and Decadron. Initial workup reviewed by me shows that her white count is normal and the remainder of her hematologic labs are nonactionable however my informal interpretation of her CT scan shows a right lower lobe infiltrate consistent with pneumonia. Upon repeat evaluation patient reported resolution of her symptoms after initial intervention. The patient was placed in observation status at 1530. Medical necessity for observational status is serial troponins. The patient was provided serial reevaluations continuous cardiac monitoring and pulse oximetry while awaiting results. As patient did not have a full syncopal event and has no chest pain and has remained so in the ER second troponin was canceled. Because of these results patient received IV antibiotics in the emergency department and then prescription for doxycycline was sent to her pharmacy. Patient was ambulatory without syncope or symptoms prior to discharge. Total time in observation was 2 hours. I was consulted by the GIOVANNA, and we discussed the complexity of the problems being addressed. I approved the treatment and management plan for this patient's care in the emergency department, thus performing a substantive portion of the medical decision making. Refugio Viera MD Critical Care <JOSUÉ Kiser - Last Filed: 01/14/24 17:35> Critical Care Time Critical Care Time: No
--- NOTE | 2024-01-14 14:24 | CT_ITS ---
FINAL REPORT TECHNIQUE: Postcontrast axial images of the chest were performed in a CTA protocol. This study was performed with techniques to keep radiation doses as low as reasonably achievable, (ALARA). Individualized dose reduction technique using automated exposure control or adjustment of mA and/or kV according to the patient's size were employed. CLINICAL HISTORY: Chest pain, near syncope pt states chest pressure; admitted to ER post syncope in radiology outpt waiting room COMPARISON: 12/21/2022 FINDINGS: The heart is normal in size. There is no axillary lymphadenopathy. There are new, mildly enlarged right paratracheal and subcarinal lymph nodes. For example, there is a subcarinal lymph node measuring 26 mm. There is no hilar lymphadenopathy. No pleural or pericardial effusion is identified. The thoracic aorta is normal in caliber with no focal aneurysm or dissection identified. There is no filling defect to suggest pulmonary embolism. There are new groundglass and small nodular opacities in the left lower lobe most consistent with pneumonia. The lungs are otherwise clear.. The images of the upper abdomen are unremarkable. There is no acute osseous abnormality. IMPRESSION: No evidence for PE on this exam. New groundglass and nodular opacities in the left lower lobe consistent with pneumonia with likely reactive mediastinal lymphadenopathy. Reviewed, Interpreted and Dictated by Stacie Duong MD Transcribed by Madonna Franco Authenticated and [facility]
[2024-01-14 14:30] VITALS: BP 114/74; PULSE 80; RESP 23; O2SAT 97
[2024-01-14 14:32] LABS: Basophils # 0.1 K/mm3 (0-0.2); Basophils % 0.6 % (0.1-2.0); Eosinophils # 0.1 K/mm3 (0.0-0.4); Eosinophils % 0.7 % (0.1-12.0); Hemoglobin 14.5 g/dL (12.2-16.2); Lymphocytes # 1.3 K/mm3 (0.7-4.5); Lymphocytes % 13.6 % (10-50); Mean Corpuscular HGB Conc 32.3 g/dL (31.8-35.4); Mean Corpuscular Hemoglobin 31.1 pg (27.0-31.2); Mean Corpuscular Volume 96.4 fl (81-99); Mean Platelet Volume 7.3 fl (7.4-10.4); Monocytes # 0.4 K/mm3 (0.1-1.0); Monocytes % 4.4 % (1.7-9.3); Neutrophils # 7.5 K/mm3 (1.8-7.8); Neutrophils % 80.5 % (37.0-80.0); Platelet Count 321 K/mm3 (142-424); Red Blood Count 4.66 M/mm3 (4.20-5.40); Red Cell Distribution Width 13.4 % (11.5-17.5); White Blood Count 9.3 K/mm3 (4.8-10.8)
[2024-01-14 14:35] LABS: Chloride 105 mmol/L (98-107); Potassium 4.2 mmoL/L (3.5-5.1); Sodium 138 mmol/L (136-145)
[2024-01-14 14:36] LABS: HCG Qualitative, Serum Negative (Negative)
[2024-01-14 14:38] LABS: Alanine Aminotransferase 23 U/L (12-78); Alkaline Phosphatase 91 U/L (38-126); Anion Gap 11.2 mEq/L (5-15); Aspartate Amino Transferase 36 U/L (14-36); Bilirubin,Total 0.7 mg/dl (0.2-1.3); Blood Urea Nitrogen 16 mg/dl (7-17); Calcium 9.4 mg/dl (8.4-10.2); Carbon Dioxide 26 mmol/L (22.0-30.0); Estimated Glomerular Filt Rate 77 ml/min (>60); GFR (African American) 93 ML/MIN (>60); Glucose 116 mg/dl (74-100)
[2024-01-14 14:39] LABS: Albumin Level 4.6 g/dl (3.5-5.0); Albumin/Globulin Ratio 1.3 (1.1-1.8); Globulin 3.6 g/dL (1.3-3.2); Magnesium 1.8 mg/dl (1.6-2.3); Total Protein,Serum 8.2 g/dl (6.3-8.2)
[2024-01-14 14:49] LABS: NT Pro Brain Natriuretic Pep. 70.6 pg/mL (0-125)
[2024-01-14 14:52] LABS: Lactate Venous 1.9 mmol/L (0.4-2.0); VBG Base Excess 0.3 mmol/L (-2.4-2.3); VBG Oxygen Saturation 60.5 % (50-70); VBG PCO2 48.6 mmol/L (35-51); VBG PH 7.35 mmol/L (7.31-7.41); VBG PO2 32.6 mmol/L (28-40); VBG Total CO2 27.5 mmol/L (23-27)
[2024-01-14 14:53] LABS: Adenovirus,PCR Not Detected (NotDetected); Bordetella Pertussis Not Detected (NotDetected); Chlamydophila Pneumoniae, PCR Not Detected (NotDetected); Coronavirus 19, PCR Not Detected (NotDetected); Coronavirus 229E Not Detected (NotDetected); Coronavirus NL63 Not Detected (NotDetected); Coronavirus OC43 Not Detected (NotDetected); Coronovirus HKU1,PCR Not Detected (NotDetected); Human Metapneumovirus Not Detected (NotDetected); Influenza A, PCR Not Detected (NotDetected); Influenza AH1, 2009 Not Detected (NotDetected); Influenza AH1, PCR Not Detected (NotDetected); Influenza AH3,PCR Not Detected (NotDetected); Influenza B, PCR Not Detected (NotDetected); Mycoplasma Pneumoniae, PCR Not Detected (NotDetected); Parainfluenza 1, PCR Not Detected (NotDetected); Parainfluenza 2, PCR Not Detected (NotDetected); Parainfluenza 3, PCR Not Detected (NotDetected); Parainfluenza 4, PCR Not Detected (NotDetected); Respiratory Syncytial Virus Not Detected (NotDetected); Rhinovirus/Enterovirus Not Detected (NotDetected)
[2024-01-14 14:53] LABS: INR 1.23 (0.9-1.1); Prothrombin Time 13.5 seconds (10.1-12.5)
[2024-01-14] MEDS: IPRATROPIUM/ALBUTEROL 3 ML NEB IH (14:54)
[2024-01-14] MEDS: 0.9 % SODIUM CHLORIDE 1000ML 500 ML 999 ML IV (14:55)
[2024-01-14] MEDS: BELLADONNA ALKALOIDS 60 ML ML PO (14:55)
[2024-01-14] MEDS: DEXAMETHASONE 4MG/ML 5ML MDV 10 MG IV (14:55)
[2024-01-14] MEDS: ONDANSETRON 4MG/2ML VIAL 4 MG IV (14:55)
[2024-01-14] MEDS: ACETAMINOPHEN 1,000MG/100ML VIAL 1000 MG IV (14:55)
[2024-01-14 14:56] LABS: Triiodothryronine (T3) Uptake 28 % (23.5-40.5); Troponin I < 0.01 ng/ml (0.00-0.034)
[2024-01-14 14:57] LABS: Free Thyroxine Index 2.1 ug/dL (5.93-13.13); T4 (Thyroxine) 7.5 ug/dl (5.53-11.0)
[2024-01-14 15:00] VITALS: BP 130/76; PULSE 79; RESP 17; O2SAT 99
[2024-01-14 15:10] LABS: Thyroid Stimulating Hormone 1.08 uIU/mL (0.465-4.68)
[2024-01-14] MEDS: IOPAMIDOL-370 (76%);100ML BOTTLE 70 ML IV (15:21)
[2024-01-14] MEDS: 0.9 % SODIUM CHLORIDE 50 ML VIAL IV (15:21)
[2024-01-14] MEDS: SODIUM CHLORIDE 0.9% 10ML SYR (RAD ONLY) 10 ML IV (15:21)
[2024-01-14 15:41] LABS: Microscopic, Urine URINE MICROSCOPIC (MICROSCOPIC)
[2024-01-14 15:47] LABS: Appearance,Urine CLEAR (Clear); Bilirubin,Urine Negative (Negative); Blood, Urine Negative (Negative); Color,Urine YELLOW (Yellow); Glucose,Urine (UA) Negative (Negative); Ketones,Urine Negative (Negative); Leukocyte Esterase,Urine Negative (Negative); Nitrate,Urine Negative (Negative); Protein,Urine Negative (Negative); Specific Gravity, Urine 1.025 (1.005-1.030); Urobilinogen,Urine 0.2 EU/dl (0.2)
[2024-01-14 15:54] LABS: Bacteria,Urine Trace /lpf; Mucus,Urine 1+ /lpf; Squamous Epithelial Cell,Urine Occasional #/hpf (0-5); WBC,Urine Occasional #/hpf (0-3)
[2024-01-14] MEDS: AZITHROMYCIN 500 MG in 0.9 % SODIUM CHLORIDE 250 ML 250 MG IV (17:29)
[2024-01-14] MEDS: CEFTRIAXONE SODIUM 1 GM in 0.9 % SODIUM CHLORIDE 50 ML IV (17:30)
[2024-01-14 18:07] VITALS: BP 130/76; PULSE 79; RESP 17; TEMP 36.7; O2SAT 98
== END 2024-01-14 18:09 | disposition home or self-care (01) ==
PROVIDERS: Physician Assistant; Emergency Provider Emergency Medicine; PCP Family Medicine
DX: R07.89 Other chest pain (principal); J18.9 Pneumonia, unspecified organism; R55 Syncope and collapse; R42 Dizziness and giddiness; I10 Essential (primary) hypertension
CPT/HCPCS: 71275; 80050; 80053; 81001; 82803; 83735; 83880; 84436; 84443; 84479; 84484; 84703; 85025; 85610; 87581; 87632; 87635; 87798; 93005; 96365; 96366; 96375; 99285; J0131; J0456; J0696; J2405; J7030; J7620; Q9967

== ENCOUNTER 2024-12-10 07:17 | Outpatient (CLI) | payer BC, SELFPAY ==
--- OUTSIDE RECORDS SUMMARY | 2024-08-18 09:45 | XMS_ITS ---
Author Organization [facility] Address [address] [place], [place] [phone] Care Team Providers Care Ship Purser Name Role Phone Katelyn Resendez Unavailable [phone] REASON FOR VISIT Diarrhea Encounters Encounter Location Date Provider Diagnosis [facility]10 [facility] 36 [facility] [address] [place], [place] [phone] 08/18/2024 Katelyn Resendez Plan Of Treatment Next Appt Details Provider Name:Katelyn Ryder er, 12/18/2024 04:00:00 PM, [address] [facility] 36 [facility], [address], [place], [place], [phone], Progress Notes * KASEY HUBBARDDOB:1975 (49 yo F)Acc No.[id number]:08/18/2024 Progress Notes Patient: KASEY BACK Provider: Katelyn Resendez M.D. :1975 A ge:48 Y S ex:Female Date:08/18/2024 Address:[address] [place], [place] [phone] Subjective: * Chief Complaints: * 1 . Diarrhea. * Medical History: Objective: * Vitals: Assessment: Plan: * Treatment: * Billing Information: * Visit Code: * Procedure Codes: * Electronic signature of Katelyn Resendez MD on 12/10/2024 at 07:19 AM EDT Sign off status: Pending * Provider: Katelyn Resendez M.D. Date: 0 08/18/2024 Generated for Susan rutledge/Chicho/Enrique on: 0 12/10/2024 07:19 AM EDT
--- OUTSIDE RECORDS SUMMARY | 2024-10-23 12:15 | XMS_ITS ---
Author Organization Renee Address [address] [place] [phone] Care Team Providers Care Casting Coordinator Name Role Phone Ktaelyn Resendez Unavailable [phone] Allergies No Known Allergies REASON FOR VISIT 4month check up, Needs labs, mammogram, & colon cancer screening Encounters Encounter Location Date Provider Diagnosis [facility] [address] [place] [phone] 10/23/2024 Katelyn Resendez Plan Of Treatment Next Appt Details Provider Name:Katelyn Ryder er, 12/18/2024 04:00:00 PM, [address] [place] [address], [address] , [place], [place], [phone], Progress Notes * KASEY HUBBARDDOB:1975 (49 yo F)Acc No.[id number]:10/23/2024 Progress Notes Patient: KASEY BACK Provider: Katelyn Resendez M.D. :1975 A ge:49 Y S ex:Female Date:10/23/2024 Address:[address] [place], [place] [phone] Subjective: * Chief Complaints: * 1 . 4month check up. 2. Needs labs, mammogram, & colon cancer screening. * ROS: D ERMATOLOGY: no R michael. n o H brendan. G ASTROENTEROLOGY: no N ausea. n o V omiting. n o D iarrhea.? U ROLOGY: no D ifficulty urinating. n o B lood in urine. 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 * Surgical History: w isdom teeth extracted 1995, Miscarriage-ablation 2002, Tonsillectomy 2004, Carpal tunnel - both wrists 2006, Essure inserted for control 2009, Cholecystectomy 2016, endometrial ablation 2018, left shoulder -lump 2020, Colonoscopy- Dr Case 2020. * Hospitalization/Major Diagno stic Procedure: B irth of first son 10/25/2002, Miscarriage -uterine ablation 2002, of second son 01/12/2006, of daughter 03/18/2010. * Family History: F ather: alive, diagnosed with Stroke. M other: alive, diagnosed with Cancer. P aternal Grand Mother: , diagnosed with Heart Disease, Stroke. M aternal Grand Mother: , diagnosed with Cancer. 2 sister(s) . 2 son(s) , 1 daughter(s) . . Mother- leukemia Maternal grand mother liver cancer. * Social History: C URRENT TOBACCO USE: No . C affeine: yes, frequency: soda and/or energy drinks once a day. Alcohol: yes, occasionally. * Allergies: N .K.D.A. Objective: * Vitals: Assessment: Plan: * Treatment: * Billing Information: * Visit Code: * Procedure Codes: * Electronic signature of Katelyn Resendez MD on 12/10/2024 at 07:19 AM EDT Sign off status: Pending * Provider: Katelyn Resendez M.D. Date: 0 10/23/2024 Generated for Susan rutledge/Chicho/Aliyahitting on: 12/10/2024 07:19 AM EDT
--- OUTSIDE RECORDS SUMMARY | 2024-11-26 12:45 | XMS_ITS ---
Author Organization [facility] Address [address] [facility] [address] [id number] Care Team Providers Care Gravel Screener Name Role Phone MalKatelyn Unavailable [phone] Bailey Yanez Unavailable [phone] Allergies No Known Allergies Results Component Value Reference Range Notes Urinalysis - Inhouse Reviewed date:11/26/2024 06:02:58 PM Interpretation: Performing Lab: Notes/Report: Color/Clarity dark Leuk neg Nitrite neg Urobili 3.2 Protein neg pH 5.5 Blood neg Sp. Gr. 1.030 Ketone neg Bili neg Gluc neg Reason For Referral Diagnosis 1 Pelvic pain (R10.2) [facility] Referring Provider First Name Bailey Referring Provider Last Name Beau Referring Provider Speciality Physician Assistant Bookkeeper Referred Provider Specialty OB - Gynecol ogy [...] Time for 30 day(s) 01/04/2024 Active Nystatin 925953 UNIT/GM 1 application Externally Twice a day [...] 11/26/2024 Encounters Encounter Location Date Provider Diagnosis [facility] [address] [place], [place] [id number] 11/26/2024 Bailey Yanez Palpable abdominal m ass [...] Name:Katelyn Ryder er, 12/18/2024 04:00:00 PM, [address], [address], [place], [place], [id number], Progress Notes * KASEY HUBBARDDOB:1975 (49 yo F)Acc No.[id number]:11/26/2024 Progress Notes Patient: KASEY BACK Provider: JOSUÉ Shelby :1975 A ge:49 Y S ex:Female Date:11/26/2024 Address:[address] [place], [place] [phone] Subjective: * Chief Complaints: * 1 . [...] as needed Inhalation qid , Not-Taking Nystatin 981659 UNIT/GM Ointment 1 application Externally Twice a [...] results * Billing Information: * Visit Code: 67108 Office Visit, Est Pt., Level 4. * Procedure Codes: 62611 Urinalysis, no micro. * Electronic signature of JOSUÉ Valdez on 12/10/2024 at 07:19 AM EDT Sign off status: Pending * Provider: JOSUÉ Shelby Date: 0 11/26/2024 Generated for Susan rutledge/Chicho/Khalifsmitting on: 0 12/10/2024 07:19 AM EDT History and Physical Notes * HPI (History of Present Illness) Category Sub-Category Detail Notes Category Not es Dermatology h/o insect bite Pt is here today for c/o a tick bite. 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 Steinberg [...]
--- OUTSIDE RECORDS SUMMARY | 2024-12-10 07:19 | XMS_ITS | Clinical Summary ---
Author Organization Healthcare Address [address] [place] [address] Care Team Providers Care Placement Assistant Name Role Phone Pcp, No Primary Care Provider Unavailabl e Allergies No known active allergies Social History Tobacco Use Types Packs/Day Years Used Date Smoking Tobacco: Never Alcohol Use Standard Drinks/Week Comments Not Currently 0 (1 standard drink = 0.6 oz pur e alcohol) Comments Unknown Sex and Gender Information Value Date Recorded Sex Assigned at Female 11/30/2021 4:39 PM EDT Legal Sex Female 8:43 AM EDT Gender Identity Female 11/30/2021 4:39 PM EDT Sexual Orientation Not on file Last Filed Vital Signs Vital Sign Reading Time Taken Comments Blood Pressure 151/92 11/29/2021 8:46 AM EDT Pulse 79 11/29/2021 8:46 AM EDT Temperature 36.5 C (97.7 F) 11/29/2021 8:46 AM EDT Respiratory Rate 15 11/29/2021 8:46 AM EDT Oxygen Saturation 98% 11/29/2021 8:46 AM EDT Inhaled Oxygen Concentration - - Weight 93 kg (205 lb) 11/29/2021 8:46 AM EDT Height 157.5 cm (5' 2 ) 11/29/2021 8:46 AM EDT Body Mass Index 37.49 11/29/2021 8:46 AM EDT Plan of Treatment Health Maintenance Due Date Last Done Comments [facility]-Depression Screening 1975 [facility]-HIV Screening 1975 [facility]-Hepatitis C Screening 1975 [facility]-/Child/Adol SDOH Screenings 1975 [facility]- SDOH Screenings 1994 [facility]-Adult SDOH Screenings 1994 [facility]-Hepatitis B Vaccines (1 of 3 - 19+ 3-dose series) 1995 [facility]-Pap Smear 1997 [facility]-Cervical Cancer Screening 2006 [facility]-HPV/Cotest 2006 CT Colonography 2021 Colonoscopy 2021 FIT-DNA 2021 FIT 2021 FOBT 2021 Sigmoidoscopy 2021 [facility]-Colorectal Cancer Screening 2021 [id number] Vaccine ( season) 2024 01/13/2021, 12/16/2020 [facility]-Influenza Vaccine (Seaso n Ended) 2025 05/17/2018, 04/12/2017 [facility]-Zoster Vaccines (1 of 2) 2026 [facility]-DTaP,Tdap,and Td Vaccine s (2 - Td or Tdap) 12/12/2028 12/12/2018 [facility]-Hepatitis A Vaccines Aged Out 05/17/2018 No longer eligible based on patient's age to complete this topic HPV Vaccines Aged Out No longer eligi ble based on patient's age to complete this topic [facility]-HIB Vaccines Aged Out No longer e ligible based on patient's age to complete this topic [facility]-IPV Vaccines Aged Out No longer e ligible based on patient's age to complete this topic [facility]-Pneumococcal Vaccine: Pediatrics (0 to 5 Years) and At-Risk Patients (6 to 49 Years) Aged Out No longer eligible b ased on patient's age to complete this topic [facility]-Rotavirus Vaccines Aged Out No lo nger eligible based on patient's age to complete this topic Insurance CORIN Care Teams Placement Assistant Relationship Specialty Start Date End Date Pcp, [place] [address] PCP - General Family Medicine 11/29/21
--- OUTSIDE RECORDS SUMMARY | 2024-12-10 07:20 | XMS_ITS | Patient Health Record ---
Author Organization [facility] Address [address] [facility] 36 [facility] [address] [place], [place] [id number] Care Team Providers Care Shingle Cutter Name Role Phone Katelyn Resendezory Unavailable [phone] Grant Jenny Unavailable [phone] Brandon Ynaeza Unavailable [phone] Allergies No Known Allergies Results Component Value Reference Range Notes P-Comprehensive Metabolic Pa daja (CMP) Reviewed date:01/02/2024 12:36:35 PM Interpretation:Normal Performing Lab: Notes/Report: Test performed by [facility] [employer] [facility] , [address], [place] [address] Flavio Walden MD, Scratch Brusher CLIA: [id number] Sodium 138 135-145 mmol/L Potassium 3.9 3.5-5.3 mmol/L Chloride 103 97-108 mmol/L CO2 25 22-32 mmol/L Glucose 88 65-99 mg/dL BUN 13 6-20 mg/dL Creatinine 0.67 0.50-1.00 mg/dL Calcium 9.1 8.6-10.4 mg/dL eGFR by Creatinine 108 >59 mL/min/1.73m2 Protein 6.7 6.0-8.3 g/dL Albumin 4.2 3.5-5.3 g/dL Alkaline Phosphatase 83 35-121 IU/L ALT (SGPT) 10 <5-47 IU/L AST (SGOT) 16 <5-40 IU/L Bilirubin, Total 0.5 <0.2-1.2 mg/dL A/G Ratio 1.7 1.1-2.5 mg/dL P-Lipid Panel Reviewed date:01/02/2024 12:36:35 PM Interpretation:chol 211, non-hdl 139, ldl 130 Performing Lab: Notes/Report: Test performed by [facility] [place], [place] [address] [place] , [place] [address] Flavio Walden MD, Scratch Brusher CLIA: [id number] Cholesterol 211 <200 mg/dL Triglycerides 47 <150 mg/dL HDL Cholesterol 72 >39 mg/dL Cholesterol / HDL Ratio 2.93 0.00-4.44 Ratio Non-HDL Cholesterol 139 <130 mg/dL LDL Cholesterol (Calculation) 130 <130 mg/dL LDL Cholesterol Levels* Less than 100 mg/dL Optimal 100 to 129 mg/dL Near Optimal/ Above Optimal 130 to 159 mg/dL Borderline High 160 to 189 mg/dL High 190 mg/dL and above Very High * Categories as recommended by the 2004 ATPIII guidelines LDL/HDL Ratio 1.8 <3.3 Ratio LDL Cholesterol Patient History Test Date: 12/27/2023 LDL Results: 130 Units: mg/dL % Change: - P-Comprehensive Metabolic Pa daja (CMP) Reviewed date:06/30/2024 01:17:38 PM Interpretation:Normal Performing Lab: Notes/Report: Test performed by [facility] , [address], [place] [address] Flavio Walden MD, Scratch Brusher CLIA: [id number] Sodium 141 135-145 mmol/L Potassium 4.8 3.5-5.3 mmol/L Chloride 104 97-108 mmol/L CO2 27 22-32 mmol/L Glucose 86 65-99 mg/dL BUN 11 6-20 mg/dL Creatinine 0.66 0.50-1.00 mg/dL Calcium 9.2 8.6-10.4 mg/dL eGFR by Creatinine 108 >59 mL/min/1.73m2 Protein 6.5 6.0-8.3 g/dL Albumin 3.9 3.5-5.3 g/dL Alkaline Phosphatase 83 35-121 IU/L ALT (SGPT) 20 <5-47 IU/L AST (SGOT) 22 <5-40 IU/L Bilirubin, Total <0.2 <0.2-1.2 mg/dL A/G Ratio 1.5 1.1-2.5 CBC Fingerstick (in house) Reviewed date:01/14/2024 02:51:41 PM Interpretation: Performing Lab: Notes/Report: wbc 10.4 3.5 - 10 lym 17.1% 15 - 50 mid 4.2% 2 - 15 gran 78.7% 35 - 80 rbc 4.75 3.5 - 5.5 hgb 14.5 11.5 - 16.5 hct 43.9 35 - 55 mcv 92.5 75 - 100 mch 30.6 25 - 35 mchc 33.0 31 - 38 plat 159 100 - 400 Urinalysis - Inhouse Reviewed date:11/26/2024 06:02:58 PM Interpretation: Performing Lab: Notes/Report: Color/Clarity dark Leuk neg Nitrite neg Urobili 3.2 Protein neg pH 5.5 Blood neg Sp. Gr. 1.030 Ketone neg Bili neg Gluc neg Reason For Referral Diagnosis 1 Pelvic pain (R10.2) Referral Organization [facility] Referring Provider First Name Bailey Referring Provider Last Name Beau Referring Provider Speciality Physician Grades 1 Through 5 Teacher Referred Provider Specialty OB - Gynecol ogy General Notes Bailey Yanez 04:58:46 PM >Needs an appt with Sharon Greenwood Brynn 11/27/2024 09:20:32 AM > faxed to Dr. Steinberg's office, Fina Herrera 12/01/2024 11:51:39 AM > 12/10/2024 at 08:45am Referral Priority Routine Medications Medication SIG (Take, Route, Frequency, Duration) Notes Start Date End Date Status Vitamin D3 25 MCG 1 tab(s) orally once a day for 30 day(s) Not-Taking Spironolactone 50 MG 1 tablet Orally Onc e a day for 30 day(s) Active metroNIDAZOLE 0.75 % 1 applicatorful at bedtime Vaginal At Bed Time for 7 days 03/01/2023 Not-Taking Bisoprolol Fumarate 10 MG 1 tablet Orall y Once a day for 30 day(s) Active Biotin 5 MG 2 tab(s) orally once a day Not-Taking Aspirin 81 MG 1 tab(s) orally At B ed Time for 30 day(s) 05/31/2022 Active Vitamin C 1000 MG 1 tab(s) orally once a day for 30 day(s) Not-Taking Albuterol Sulfate HFA 108 (90 Base) MCG/ACT 1 puff as needed Inhalation qid for 14 days 01/14/2024 Not-Taking Fluticasone Propionate 50 MCG/ACT 1 spray in each nostril Nasally Once a day for 30 days Active Rosuvastatin Calcium 10 MG 1 tablet Orally At Bed Time for 30 day(s) 01/04/2024 Active Fexofenadine HCl 180 MG 1 tab(s) orally once a day for 10 days Active Xarelto 20 MG 1 tablet with food Orally Once a day in the evening Active Nystatin 249021 UNIT/GM 1 application Externally Twice a day 03/01/2023 Not-Takin g Triamcinolone Acetonide 0.1 % 1 application Externally Two times a day, prn 11/26/2024 Active Lisinopril 5 MG 1 tab(s) orally once a day 05/31/2022 Not-Taking Furosemide 40 MG 1/2 Orally Once a da y for 30 day(s) Active Immunizations Vaccine Route Administration Date Status Comme nts Tetanus Tdap-Adacel (over 7yrs) Unknown 12/12/2018 Administered Hepatitis A (adult) Unknown 05/17/2018 Administered Fluzone Quad (6months&older) Unknown 05/17/2018 Administered Fluzone Quad (6months&older) IM Intramuscular 04/26/2023 Administered Fluzone PF Quad (6-35 months) Unknown 04/12/2017 Administered COVID 19 Moderna Unknown 12/16/2020 Administered COVID 19 Moderna Unknown 01/13/2021 Administered Problems Problem Type SNOMED Code ICD Code Onset Dates Problem Status W/U Status Risk Notes Problem 271688230 Factor V Leiden (D68.51) Active confirmed Problem 69697938 Chronic fatigue (R53.82) Active confirmed Problem 90872639 Hyperlipidemia, unspecified hyperlipidemia type (E78.5) Active confirmed Problem 14288387 Pelvic pain (R10.2) Active confirmed Problem 67165560 Seasonal allergi c rhinitis due to pollen (J30.1) Active confirmed Problem 135012276 Well woman exam with routine gynecological exam (Z01.419) Active confirmed Problem 92488802904117532 Carpal tunnel syndrome on both sides (G56.03) Active confirmed Problem 60544442554518925 Right arm weakness (R29.898) Active confirmed Problem 492334544 Factor V Leiden mutation (D68.51) Active confirmed Problem 31680943 Pulmonary hypertension (I27.20) Active confirmed Problem 5218401 Diastolic dysfunction (I51.89) Active confirmed Problem 38282110 Primary hypertension (I10) Active confirmed Problem 930964999 History of carpa l tunnel surgery (Z98.890) Active confirmed Vital Signs Heart Rate 104 /min 11/26/2024 Blood pressure diastolic 80 mm Hg 11/26/2024 Height 62 in 11/26/2024 Blood pressure systolic 124 mm Hg 11/26/2024 Weight 236.4 lbs 11/26/2024 BMI 43.23 kg/m2 11/26/2024 Encounters Encounter Location Date Provider Diagnosis [facility] [address] [facility] [address] [place], [place] [id number] 12/27/2023 Katelyn Resendez Hyperlipidemia, unspecified hyperlipidemia type E78.5 and Factor V Leiden mutation D68.51 [facility] [address] [place], [place] [id number] 01/14/2024 Jenny Burns Bronchitis J40 [facility] [address] [place], [place] [id number] 06/26/2024 J Agus Mal Primary hypertension I10 [facility] [address] [facility] [address] [place], [place] [id number] 11/26/2024 Bailey Yanez Palpable abdominal m ass R19.00 ; Insect bite (nonvenomous) of lower back and pelvis, initial encounter S30.860A ; Bitten or stung by nonvenomous insect and other nonvenomous arthropods, initial encounter W57.XXXA ; Dysuria R30.0 and Pelvic pain R10.2 [facility] [address] [facility] [address] [place], [place] [id number] 01/02/2024 Katelyn Agus Resendez [facility] [address] [facility] [address] [place], [place] [id number] 04/17/2024 Katelyn Agus Resendez Seasonal allergic rhinitis due to pollen J30.1 [facility] [address] [facility] [address] [place], [place] [id number] 12/04/2024 Bailey Yanez Assessments Encounter Date Diagnosis (ICD Code) Assessment Notes Treatment Notes Treatment Clinical Notes Section Notes 12/27/2023 Hyperlipidemia, unspecified hyperlipidemia type (ICD-10 - E78.5) 12/27/2023 Factor V Leiden mutation (ICD-10 - D68.51) 01/14/2024 Bronchitis (ICD-10 - J40) will curtail activites until cough much improved;, fluids, rest, supportive measures 04/17/2024 Seasonal allergic rhinitis due to pollen (ICD-10 - J30.1) 06/26/2024 Primary hypertension (ICD-10 - I10) 11/26/2024 Insect bite (nonvenomous) of lower back and pelvis, initial encounter (ICD-10 - S30.860A) 11/26/2024 Palpable abdominal mass (ICD-10 - R19.00) 11/26/2024 Bitten or stung by nonvenomous insect and other nonvenomous arthropods, initial encounter (ICD-10 - W57.XXXA) 11/26/2024 Dysuria (ICD-10 - R30.0) 11/26/2024 Pelvic pain (ICD-10 - R10.2) Plan Of Treatment Pending Test Test Name Order Date X ray : Spine, cervical 06/21/2022 colonoscopy 12/04/2024 CXR 01/14/2024 Ultrasound : Abdominal wall 11/26/2024 Next Appt Details Provider Name:Katelyn Ryder er, 12/18/2024 04:00:00 PM, [address], [address], [place], [id number], Insurance Providers Payer Name Payer Address Payer Phone Subscriber Number Group Number Insured Name Patient Relationship to Insured Coverage Start Date Coverage End Date [employer] [address] [place] [address] [id number] KASEY HUBBARD Self - patient is the insured Medical (General) History Medical History History ICD Code Gall bladder disease 2017 Depression/Anxiety - seasonal (fall) Blood clot -right lung Factor 5 positive Surgical History Surgery Date(Month/Year) wisdom teeth extracted 1995 Miscarriage-ablation 2002 Tonsillectomy 2004 Carpal tunnel - both wrists 2006 Essure inserted for control 2009 Cholecystectomy 2017 endometrial ablation 2018 left shoulder -lump 2020 Colonoscopy- Dr Case 2020 Hospitalization History Reason Date(Month/Year) of daughter 03/18/2010 of second son 01/12/2006 Miscarriage -uterine ablation 2002 of first son 10/25/2002
--- NOTE | 2024-12-10 07:26 | US_ITS ---
FINAL REPORT CLINICAL HISTORY: PALPABLE ABD MASS FINDINGS: Limited sonographic images of the mid abdomen were obtained. There is a 1.6 x 1.3 subcutaneous focus at the site of the clinical abnormality which is not cystic. This may be related to a lipoma. IMPRESSION: Possible lipoma at the site of the clinical abnormality. Reviewed, Interpreted and Dictated by Rohan Chung MD Transcribed by Amanda Jose Authenticated and [facility]
== END 2024-12-10 23:59 | disposition home or self-care (01) ==
PROVIDERS: PCP Physician Assistant; Visit Provider Physician Assistant
DX: R19.00 Intra-abdominal and pelvic swelling, mass and lump, unspecified site (principal)
CPT/HCPCS: 76705

== ENCOUNTER 2024-12-15 07:29 | Outpatient (CLI) | payer BC, SELFPAY ==
--- OUTSIDE RECORDS SUMMARY | 2024-08-18 09:45 | XMS_ITS ---
Author Organization [facility] Address [address] [place], [place] [id number] Care Team Providers [employer] Administrator Name Role Phone Katelyn Resendez Unavailable [phone] REASON FOR VISIT Diarrhea Encounters Encounter Location Date Provider Diagnosis [facility] [address] [facility] [address] [facility] [address] [place], [place] [id number] 08/18/2024 Katelyn Resendez Plan Of Treatment Next Appt Details Provider Name:Katelyn Ryder er, 12/18/2024 04:00:00 PM, [address] [facility] [address] [facility], [address], [place], [place], [id number], Progress Notes * KASEY HUBBARDDOB:1975 (49 yo F)Acc No.[id number]:08/18/2024 Progress Notes Patient: KASEY BACK Provider: Katelyn Resendez M.D. :1975 A ge:48 Y S ex:Female Date:08/18/2024 Address:[address] [place], [place] [id number] Subjective: * Chief Complaints: * 1 . Diarrhea. * Medical History: Objective: * Vitals: Assessment: Plan: * Treatment: * Billing Information: * Visit Code: * Procedure Codes: * Electronic signature of Katelyn Resendez MD on 12/15/2024 at 07:32 AM EDT Sign off status: Pending * Provider: Katelyn Resendez M.D. Date: 0 08/18/2024 Generated for Susan rutledge/Chicho/Enrique on: 0 12/15/2024 07:32 AM EDT
--- OUTSIDE RECORDS SUMMARY | 2024-10-23 12:15 | XMS_ITS ---
Author Organization Renee Address [address] [place] [phone] Care Team Providers Care Tubular Products Fabricator Name Role Phone Katelyn Resendez Unavailable [phone] Allergies No Known Allergies REASON FOR VISIT 4month check up, Needs labs, mammogram, & colon cancer screening Encounters Encounter Location Date Provider Diagnosis [facility] [address] [place] [phone] 10/23/2024 Katelyn Resendez Plan Of Treatment Next Appt Details Provider Name:Katelyn Ryder er, 12/18/2024 04:00:00 PM, [address] [place] [address], [address] , [place], [place], [phone], Progress Notes * KASEY HUBBARDDOB:1975 (49 yo F)Acc No.[id number]:10/23/2024 Progress Notes Patient: KASEY BACK Provider: Katelyn Resendez M.D. :1975 A ge:49 Y S ex:Female Date:10/23/2024 Address:[address] [place], [place] [phone] Subjective: * Chief Complaints: * 1 . [...] 0 10/23/2024 Generated for Susan rutledge/Chicho/Aliyahitting on: 0 12/15/2024 07:32 AM EDT
--- OUTSIDE RECORDS SUMMARY | 2024-11-26 12:45 | XMS_ITS ---
Author Organization [facility] [place] Address [address] [facility] 36 [facility] [address] [place] [id number] Care Team Providers Care Astrophysics Teacher Name Role Phone MalKatelyn Unavailable [phone] Bailey Yanez Unavailable [phone] Allergies No Known Allergies Results Component Value Reference Range Notes Urinalysis - Inhouse Reviewed date:11/26/2024 06:02:58 PM Interpretation: Performing Lab: Notes/Report: Color/Clarity dark Leuk neg Nitrite neg Urobili 3.2 Protein neg pH 5.5 Blood neg Sp. Gr. 1.030 Ketone neg Bili neg Gluc neg Ultrasound : Abdominal wall (Not yet reviewed by provider) Interpretation: Performing Lab: Notes/Report: Reason For Referral Diagnosis 1 Pelvic pain (R10.2) Referral Organization [facility] Referring Provider First Name Bailey Referring Provider Last Name Beau Referring Provider Speciality Physician Miller Wood Flour Referred Provider Specialty OB - Gynecol ogy [...] applicatorful at bedtime Vaginal At Bed Time for 7 days 03/01/2023 Not-Taking Biotin 5 MG 2 tab(s) orally once a day Not-Taking Rosuvastatin Calcium 10 MG 1 tablet Orally At Bed Time for 30 day(s) 01/04/2024 Active Nystatin 799080 UNIT/GM 1 application Externally Twice a day 03/01/2023 Not-Takin g Triamcinolone Acetonide 0.1 % 1 application Externally Two times a day, prn 11/26/2024 Active Albuterol Sulfate HFA 108 (90 Base) MCG/ACT 1 puff as needed Inhalation qid for 14 days 01/14/2024 Not-Taking Fluticasone Propionate 50 MCG/ACT 1 spray in each nostril Nasally Once a day for 30 days Active Fexofenadine HCl 180 MG 1 tab(s) orally once a day for 10 days Active Lisinopril 5 MG 1 tab(s) orally once a day 05/31/2022 Not-Taking Furosemide 40 MG 1/2 Orally Once a da y for 30 day(s) Active Vitamin D3 25 MCG 1 tab(s) orally once a day for 30 day(s) Not-Taking Spironolactone 50 MG 1 tablet Orally Onc e a day for 30 day(s) Active Bisoprolol Fumarate 10 MG 1 tablet Orall y Once a day for 30 day(s) Active Aspirin 81 MG 1 tab(s) orally At B ed Time for 30 day(s) 05/31/2022 Active Vitamin C 1000 MG 1 tab(s) orally once a day for 30 day(s) Not-Taking Xarelto 20 MG 1 tablet with food Orally Once a day in the evening Active Vital Signs Blood pressure systolic 124 mm Hg 11/27/19 25 Blood pressure diastolic 80 mm Hg 025 Heart Rate 104 /min 11/26/2024 Height 62 in 11/26/2024 Weight 236.4 lbs 11/26/2024 BMI 43.23 kg/m2 11/26/2024 Encounters Encounter Location Date Provider Diagnosis [facility] [address] [facility] [address] [place], [place] [id number] 11/26/2024 Bailey Yanez Palpable abdominal m ass [...] Externally Two times a day, prn 11/26/2024 Pending Test Test Name Order Date Ultrasound : Abdominal wall 11/26/2024 Referrals Referral Date Details 11/26/2024 11/26/2024 Next Appt Details Follow Up: via phone to repo rt test results, Reason: Provider Name:Katelyn Ryder er, 12/18/2024 04:00:00 PM, [address] [facility] [address] [facility], [address], [place], [place], [id number], Progress Notes * JAMESSharon CHARITYJEFFDOB:1975 (49 yo F)Acc No.[id number]:11/26/2024 Progress Notes Patient: KASEY BACK Provider: JOSUÉ Shelby :1975 A ge:49 Y S ex:Female Date:11/26/2024 Address:[address] [place] [address] Subjective: * Chief Complaints: * 1 . [...] as needed Inhalation qid , Not-Taking Nystatin 083535 UNIT/GM Ointment 1 application Externally Twice a [...] G eneral Examination: General Appearance: N AD. HEENT: u nremarkable. Oral cavity: n o lesions, mucosa moist and WNL, no erythema. Neck: s upple, no lymphadenopathy. Chest: n ormal shape and expansion. Heart: R SR. Lungs: c lear to auscultation. Abdomen: b owel sounds present , soft , nontender, mass in the epigastric area that is nontender. Neurologic Exam: I ntact, gait normal. Skin: n ormal, no rash, there is no tick bite visible, there is an area of dry skin on the mid back that is pruritic. Peripheral pulses: n ormal (2+) bilaterally. Extremities: n o leg edema. Assessment: * Assessment: 1. P alpable abdominal [...] elizabeth neg * G denita neg * Johana Owens 11/26/2024 05:0 3:58 PM > Provider reviewed results while patient in office.Bailey Yanez 11/26/2024 06:02:56 PM > 4.?Pelvic pain? Referral To:OB - Gynecology ?Reason: * Procedure Codes: 8 1002 Urinalysis, no micro * Follow Up: v ia phone to report test results * Billing Information: * Visit Code: 89828 Office Visit, Est Pt., Level 4. * Procedure Codes: 47444 Urinalysis, no micro. * Electronic signature of JOSUÉ Valdez on 12/15/2024 at 07:32 AM EDT Sign off status: Pending * Provider: JOSUÉ Shelby Date: 0 11/26/2024 Generated for Susan rutledge/Fajosefinag/eTransmitting on: 0 12/15/2024 07:32 AM EDT History and Physical Notes * HPI (History of Present Illness) Category Sub-Category Detail Notes Category Not es Dermatology h/o insect bite Pt is here today for c/o a tick bite. 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 [...]
--- NOTE | 2024-12-15 07:30 | US_ITS ---
PROCEDURE: US TRANSVAGINAL CLINICAL INDICATION: pelvic pain COMPARISON: US US TRANSVAGINAL from 06/19/2022 US US TRANSVAGINAL from 04/24/2023 US US ABDOMEN LIMITED from 12/10/2024 FINDINGS: Transvaginal and transabdominal sonographic images of the pelvis were obtained. UTERUS: 9.0cm x 5.4cmx 4.4cm axial with a combined endometrial thickness of 6.3mm. The endometrium is difficult to differentiate secondary to her previous ablation. There are several small nabothian cysts in the cervix. The largest measures 1 cm. LEFT OVARY: 2.0cmx1.6 cmx1.4cm with a volume of 2.4ml. RIGHT OVARY: 2.7 cmx 2.9 cmx2.0cm with a volume of 8ml. There is a follicle in the right ovary measuring 1.8 cm x 1.3 cm x 1.5 cm And Essure coil is seen in the right fallopian tube/cornua Both ovaries are seen and appear normal. Doppler flow to both ovaries are seen. There is no fluid in the cul-de-sac. IMPRESSION: 1. Axial uterus slightly enlarged and normal in size. The endometrium is difficult to visualize secondary to the previous ablation and axial position of the uterus. An Essure coil is seen in the right cornua and fallopian tube. Left side Essure is not visualized. 2. The right ovary is seen and appears normal. Has a 1.8 cm follicle. 3. No fluid in the cul-de-sac. Dictated by: Jose M Espinosa MD 12/15/2024 15:45 Jose M Espinosa MD in [place] 12/15/2024 15:45
--- OUTSIDE RECORDS SUMMARY | 2024-12-15 07:33 | XMS_ITS | Clinical Summary ---
Author Organization Healthcare Address [address] [place] [address] Care Team Providers Care Project Surveyor Name Role Phone Pcp, No Primary Care [...] 2021 Sigmoidoscopy 2021 [facility]-Colorectal Cancer Screening 2021 [id number] Vaccine ( season) 2024 01/13/2021, 12/16/2020 [facility]-Influenza [...] complete this topic Insurance CORIN Care Teams Project Surveyor Relationship Specialty Start Date End Date Pcp, [place] [address] PCP - General Family Medicine 11/29/21
--- OUTSIDE RECORDS SUMMARY | 2024-12-15 07:33 | XMS_ITS | Patient Health Record ---
Author Organization [facility] Address [address] [facility] 36 [facility] [address] [place] [id number] Care Team Providers Care Live Truck Technician Name Role Phone MalKatelynory Unavailable [phone] Grant Jenny Unavailable [phone] Rogerioobinna Bailey Unavailable [phone] Allergies No Known Allergies Results Component Value Reference Range Notes Urinalysis - Inhouse Reviewed date:11/26/2024 06:02:58 PM Interpretation: Performing Lab: Notes/Report: Color/Clarity dark Leuk neg Nitrite neg Urobili 3.2 Protein neg pH 5.5 Blood neg Sp. Gr. 1.030 Ketone neg Bili neg Gluc neg Ultrasound : Abdominal wall (Not yet reviewed by provider) Interpretation: Performing Lab: Notes/Report: P-Comprehensive Metabolic Pa daja (CMP) Reviewed date:06/30/2024 01:17:38 PM Interpretation:Normal Performing Lab: Notes/Report: Test performed by [facility], [facility] [address] [place] [address] , [address], [place] [address] Flavio Walden MD, Ditch Worker CLIA: [id number] Sodium 141 135-145 mmol/L Potassium 4.8 3.5-5.3 [...] <0.2 <0.2-1.2 mg/dL A/G Ratio 1.5 1.1-2.5 P-Comprehensive Metabolic Pa daja (CMP) Reviewed date:01/02/2024 12:36:35 PM Interpretation:Normal Performing Lab: Notes/Report: Test performed by [facility] [address] [place] [address] , [address], [place] [address] Flavio Walden MD, Ditch Worker CLIA: [id number] Sodium 138 135-145 mmol/L Potassium 3.9 3.5-5.3 [...] 130 Performing Lab: Notes/Report: Test performed by [facility] [address] [place] [address] , [address], [place] [address] Flavio Walden MD, Ditch Worker CLIA: [id number] Cholesterol 211 <200 mg/dL Triglycerides 47 <150 [...] Results: 130 Units: mg/dL % Change: - CBC Fingerstick (in house) Reviewed date:01/14/2024 02:51:41 [...] - 38 plat 159 100 - 400 Reason For Referral Diagnosis 1 Pelvic pain (R10.2) Referral Organization [facility] Referring Provider First Name Bailey Referring Provider Last Name Beau Referring Provider Speciality Physician Fisher Quahog Referred Provider Specialty OB - Gynecol ogy [...] a day in the evening Active Nystatin 176928 UNIT/GM 1 application Externally Twice a day [...] Problem Status W/U Status Risk Notes Problem 032127467 Factor V Leiden (D68.51) Active confirmed Problem 90874143 Chronic fatigue (R53.82) Active confirmed Problem 84454172 Hyperlipidemia, unspecified hyperlipidemia type (E78.5) Active confirmed Problem 95852048 Pelvic pain (R10.2) Active confirmed Problem 39537205 Seasonal allergi c rhinitis due to pollen (J30.1) Active confirmed Problem 810179361 Well woman exam with routine gynecological exam (Z01.419) Active confirmed Problem 01863452470999109 Carpal tunnel syndrome on both sides (G56.03) Active confirmed Problem 07802970081043014 Right arm weakness (R29.898) Active confirmed Problem 044964914 Factor V Leiden mutation (D68.51) Active confirmed Problem 19381575 Pulmonary hypertension (I27.20) Active confirmed Problem 1910819 Diastolic dysfunction (I51.89) Active confirmed Problem 97696548 Primary hypertension (I10) Active confirmed Problem 161301456 History of carpa l tunnel surgery (Z98.890) Active confirmed Vital Signs Heart Rate 104 /min 11/26/2024 Blood pressure diastolic 80 mm Hg 11/26/2024 Height 62 in 11/26/2024 Blood pressure systolic 124 mm Hg 11/26/2024 Weight 236.4 lbs 11/26/2024 BMI 43.23 kg/m2 11/26/2024 Encounters Encounter Location Date Provider Diagnosis [facility] [address] [facility] [address] [place], [place] [id number] 12/27/2023 Katelyn Resendez Hyperlipidemia, unspecified hyperlipidemia type E78.5 and Factor V Leiden mutation D68.51 [facility] [address] [facility] [address] [place], [place] [id number] 01/14/2024 Jenny Burns Bronchitis J40 [facility] [address] [facility] [address] [place], [place] [id number] 06/26/2024 Katelyn Resendez Primary hypertension I10 [facility] [address] [facility] 36 [facility] [address] [place], [place] [id number] 11/26/2024 Bailey Yanez Palpable abdominal m ass R19.00 ; Insect bite (nonvenomous) of lower back and pelvis, initial encounter S30.860A ; Bitten or stung by nonvenomous insect and other nonvenomous arthropods, initial encounter W57.XXXA ; Dysuria R30.0 and Pelvic pain R10.2 [facility] [address] [facility] 36 [facility] [address] [place], [place] [id number] 01/02/2024 Katelyn Resendez [facility] [address] [facility] 36 [facility] [address] [place], [place] [id number] 04/17/2024 Katelyn Resendez Seasonal allergic rhinitis due to pollen J30.[address] [facility] [address] [place], [place] [id number] 12/04/2024 Bailey Yanez Assessments Encounter Date Diagnosis (ICD Code) Assessment Notes Treatment Notes Treatment Clinical Notes Section Notes 11/26/2024 Insect bite (nonvenomous) of lower back and pelvis, initial encounter (ICD-10 - S30.860A) 11/26/2024 Palpable abdominal mass (ICD-10 - R19.00) 04/17/2024 Seasonal allergic rhinitis due to pollen (ICD-10 - J30.1) 12/27/2023 Hyperlipidemia, unspecified hyperlipidemia type (ICD-10 - E78.5) 12/27/2023 Factor V Leiden mutation (ICD-10 - D68.51) 06/26/2024 Primary hypertension (ICD-10 - I10) 01/14/2024 Bronchitis (ICD-10 - J40) will curtail activites until cough much improved;, fluids, rest, supportive measures 11/26/2024 Bitten or stung by nonvenomous insect [...] [address], [address], [place], [place], [id number], Insurance Providers Payer Name Payer Address Payer Phone Subscriber Number Group Number Insured Name Patient Relationship to Insured Coverage Start Date Coverage End Date [employer] [address] [place] [address] [phone] [id number] KASEY HUBBARD Self - patient is the insured Medical (General) History Medical History History ICD Code Gall bladder disease 2017 Depression/Anxiety - seasonal (fall) Blood clot -right lung Factor 5 positive Surgical History Surgery Date(Month/Year) wisdom teeth extracted 1995 Miscarriage-ablation 2002 Tonsillectomy 2005 Carpal tunnel - both wrists 2007 Essure inserted for control 2009 Cholecystectomy 2017 endometrial ablation 2019 left shoulder -lump 2020 Colonoscopy- Dr Case 2020 Hospitalization History Reason Date(Month/Year) of daughter 03/18/2010 of second son 01/12/2006 Miscarriage -uterine ablation 2002 of first son 10/25/2002
== END 2024-12-15 23:59 | disposition home or self-care (01) ==
PROVIDERS: PCP Family Medicine; Visit Provider Obstetrics & Gynecology
DX: N85.2 Hypertrophy of uterus (principal); N83.01 Follicular cyst of right ovary; R10.2 Pelvic and perineal pain; Z96.0 Presence of urogenital implants
CPT/HCPCS: 76830

== ENCOUNTER 2025-03-09 12:09 | Outpatient (CLI) | payer BC, SELFPAY ==
--- OUTSIDE RECORDS SUMMARY | 2024-08-18 09:45 | XMS_ITS ---
Author Organization Renee Address 1210 [facility] 36 [facility] [address] [place], [place] [phone] Care Team Providers Care Gas Prover Name Role Phone Katelyn Resendez [phone] REASON FOR VISIT Diarrhea Encounters Encounter Location Date Provider Diagnosis [facility] 1210 [facility] 36 [facility] [address] [place], [place] [phone] 08/18/2024 Katelyn Resendez Plan Of Treatment Next Appt Details Provider Name:Jenny elizabeth, 03/16/2025 09:30:00 AM, [facility] 36 [facility], [address], [place], [place], [phone], Progress Notes * KASEY HUBBARDDOB:1975 (49 yo F)Acc No.[id number]:08/18/2024 Progress Notes Patient: KASEY BACK Provider: Katelyn Resendez M.D. :1975 A ge:48 Y S ex:Female Date:08/18/2024 Address:[address] [place], [place] [phone] Subjective: * Chief Complaints: * 1 . Diarrhea. * Medical History: Objective: * Vitals: Assessment: Plan: * Treatment: * Images: Billing Information: * Visit Code: * Procedure Codes: * Electronic signature of Katelyn Resendez MD on 03/09/2025 at 12:13 PM EDT Sign off status: Pending * Provider: Katelyn Resendez M.D. Date: 0 08/18/2024 Generated for Susan rutledge/Chicho/Enrique on: 0 03/09/2025 12:13 PM EDT
--- OUTSIDE RECORDS SUMMARY | 2024-10-23 12:15 | XMS_ITS ---
Author Organization Renee Address [address] [place] [phone] Care Team Providers Care Php Programmer Name Role Phone Katelyn Resendez Unavailable [phone] Allergies No Known Allergies REASON FOR VISIT 4month check up, Needs labs, mammogram, & colon cancer screening Encounters Encounter Location Date Provider Diagnosis [facility] [address] [place] [phone] 10/23/2024 Katelyn Resendez Plan Of Treatment Next Appt Details Provider Name:Jenny elizabeth, 03/16/2025 09:30:00 AM, [facility] [address], [address], [place], [place], [phone], Progress Notes * KASEY HUBBARDDOB:1975 (49 yo F)Acc No.[id number]:10/23/2024 Progress Notes Patient: KASEY BACK Provider: Katelyn Resendez M.D. :1975 A ge:49 Y S ex:Female Date:10/23/2024 Address:[address] [place], [place] [phone] Subjective: * Chief Complaints: * 1 . [...] 10/23/2024 Generated for Susan rutledge/Chicho/Aliyahitting on: 0 03/09/2025 12:13 PM EDT
--- OUTSIDE RECORDS SUMMARY | 2024-11-26 12:45 | XMS_ITS ---
Author Organization [facility] Address 1210 [facility] 36 [facility] [address] [place] [phone] Care Team Providers Care Cardiographer Name Role Phone MalKatelyn Unavailable [phone] Bailey Yanez Unavailable [phone] Allergies No Known Allergies Results Component Value Reference Range Notes Urinalysis - Inhouse Reviewed date:11/26/2024 06:02:58 PM Interpretation: Performing Lab: Notes/Report: Color/Clarity dark Leuk neg Nitrite neg Urobili 3.2 Protein neg pH 5.5 Blood neg Sp. Gr. 1.030 Ketone neg Bili neg Gluc neg Ultrasound : Abdominal wall Reviewed date:12/25/2024 09:56:34 AM Interpretation: Performing Lab: Notes/Report: Reason For Referral Diagnosis 1 Pelvic pain (R10.2) [facility] Referring Provider First Name Bailey Referring Provider Last Name Beau Referring Provider Speciality Physician Casing Tier Referred Provider Specialty OB - Gynecol ogy General Notes Bailey Yanez 04:58:46 PM >Needs an appt with Sharon Greenwood Brynn 11/27/2024 09:20:32 AM > faxed to Dr. Steinberg's office, Fina Hrerera 12/01/2024 11:51:39 AM > 12/10/2024 at 08:45am Referral Priority Routine REASON FOR VISIT tick bite Medications Medication SIG (Take, Route, Frequency, Duration) Notes Start Date End Date Status metroNIDAZOLE 0.75 % 1 applicatorful at bedtime Vaginal At Bed Time; Duration: 7 days 03/01/2023 Not-Takin g Biotin 5 MG 2 tab(s) orally once a day Not-Taking Rosuvastatin Calcium 10 MG 1 tablet Orally At Bed Time; Duration: 30 day(s) 01/04/2024 Active Nystatin 799398 UNIT/GM 1 application Externally Twice a day 03/01/2023 Not-Takin g Triamcinolone Acetonide 0.1 % 1 application Externally Two times a day, prn 11/26/2024 Active Albuterol Sulfate HFA 108 (90 Base) MCG/ACT 1 puff as needed Inhalation qid; Duration: 14 days 01/14/2024 Not-Taking Fluticasone Propionate 50 MCG/ACT 1 spray in each nostril Nasally Once a day; Duration: 30 days Active Fexofenadine HCl 180 MG 1 tab(s) orally once a day; Duration: 10 days Active Lisinopril 5 MG 1 tab(s) orally once a day 05/31/2022 Not-Taking Furosemide 40 MG 1/2 Orally Once a da y; Duration: 30 day(s) Active Vitamin D3 25 MCG 1 tab(s) orally once a day; Duration: 30 day(s) Not-Taking Spironolactone 50 MG 1 tablet Orally Onc e a day; Duration: 30 day(s) Active Bisoprolol Fumarate 10 MG 1 tablet Orall y Once a day; Duration: 30 day(s) Active Aspirin 81 MG 1 tab(s) orally At B ed Time; Duration: 30 day(s) 05/31/2022 Active Vitamin C 1000 MG 1 tab(s) orally once a day; Duration: 30 day(s) Not-Taking Xarelto 20 MG 1 tablet with food Orally Once a day in the evening Active Vital Signs Blood pressure systolic 124 mm Hg 11/27/19 25 Blood pressure diastolic 80 mm Hg 025 Heart Rate 104 /min 11/26/2024 Height 62 in 11/26/2024 Weight 236.4 lbs 11/26/2024 BMI 43.23 kg/m2 11/26/2024 Encounters Encounter Location Date Provider Diagnosis [facility] [address] [facility] [address] [place], [place] [phone] 11/26/2024 Bailey Yanez Palpable abdominal m ass R19.00 ; Insect bite (nonvenomous) of lower back and pelvis, initial encounter S30.860A ; Bitten or stung by nonvenomous insect and other nonvenomous arthropods, initial encounter W57.XXXA ; Dysuria R30.0 and Pelvic pain R10.2 Assessments Encounter Date Diagnosis (ICD Code) Assessment Notes Treatment Notes Treatment Clinical Notes Section Notes 11/26/2024 Palpable abdominal mass (ICD-10 - R19.00) 11/26/2024 Insect bite (nonvenomous) of lower back and pelvis, initial encounter (ICD-10 - S30.860A) 11/26/2024 Bitten or stung by nonvenomous insect and other nonvenomous arthropods, initial encounter (ICD-10 - W57.XXXA) 11/26/2024 Dysuria (ICD-10 - R30.0) 11/26/2024 Pelvic pain (ICD-10 - R10.2) Plan Of Treatment Medication Medication Name Sig Start Date Stop Date Notes Triamcinolone Acetonide 0.1 % 1 applicat ion Externally Two times a day, prn 11/26/2024 Referrals Referral Date Details 11/26/2024 11/26/2024 Next Appt Details Follow Up: via phone to repo rt test results, Reason: Provider Name:Jenny kernsesequiel, 03/16/2025 09:30:00 AM, [address] [facility] [address], [address] , [place], [place], [phone], Progress Notes * KASEY HUBBARDDOB:1975 (49 yo F)Acc No.[id number]:11/26/2024 Progress Notes Patient: KASEY BACK Provider: JOSUÉ Shelby :1975 A ge:49 Y S ex:Female Date:11/26/2024 Address:[address] [place], [place] [phone] Subjective: * Chief Complaints: * 1 . Tick bite. * HPI: D ermatology: 49 year old female presents with c/o h/o insect bite P t is here today for c/o a tick bite. Pt sts the tick bite was on her back, and sts that it itches, also has a mass in the upper abdomen that is growing. G YN: c/o pelvic pain S he has seen Dr. Steinberg in the past and was supposed to have a hysterectomy due to prolapse. She was unable to get the surgery due to loss of insurance. * ROS: D ERMATOLOGY: no R michael. [...] 2018, left shoulder -lump 2020, Colonoscopy- Dr Nava 2020. * Hospitalization/Major Diagno stic Procedure: B [...] once a day. Alcohol: yes, occasionally. * Medications: T aking Rosuvastatin Calcium 10 MG Tablet 1 tablet Orally At Bed Time , Taking Xarelto 20 MG Tablet 1 tablet with food Orally Once a day in the evening , Taking Spironolactone 50 MG Tablet 1 tablet Orally Once a day , Taking Bisoprolol Fumarate 10 MG Tablet 1 tablet Orally Once a day , Taking Aspirin 81 MG Tablet Delayed Release 1 tab(s) orally At Bed Time , Taking Furosemide 40 MG Tablet 1/2 Orally Once a day , Taking Fluticasone Propionate 50 MCG/ACT Suspension 1 spray in each nostril Nasally Once a day , Taking Fexofenadine HCl 180 MG Tablet 1 tab(s) orally once a day , Not-Taking Vitamin C 1000 MG Tablet 1 tab(s) orally once a day , Not-Taking Vitamin D3 25 MCG Tablet 1 tab(s) orally once a day , Not-Taking Lisinopril 5 MG Tablet 1 tab(s) orally once a day , Not-Taking Albuterol Sulfate HFA 108 (90 Base) MCG/ACT Aerosol Solution 1 puff as needed Inhalation qid , Not-Taking Nystatin 488711 UNIT/GM Ointment 1 application Externally Twice a day , Not-Taking metroNIDAZOLE 0.75 % Gel 1 applicatorful at bedtime Vaginal At Bed Time , Not-Taking Biotin 5 MG Tablet Disintegrating 2 tab(s) orally once a day , Medication List reviewed and reconciled with the patient * Allergies: N .K.D.A. Objective: * Vitals: W t: 236.4, Temp: 98.4, BP: 124/80, HR: 104, Nurse: christina, Ht: 62, BMI:43.23. * Examination: G eneral Examination: General Appearance: N AD. H EENT: u nremarkable.?Oral cavity: n o lesions, mucosa moist and WNL, no erythema. N kevin: s upple, no lymphadenopathy. C hest: n ormal shape and expansion. H eart: R SR. L ungs: c lear to auscultation. A bdomen: b owel sounds present , soft , nontender, mass in the epigastric area that is nontender. N eurologic Exam: I ntact, gait normal. S kin: n ormal, no rash, there is no tick bite visible, there is an area of dry skin on the mid back that is pruritic. P eripheral pulses: n ormal (2+) bilaterally. E xtremities: n o leg edema. ? Assessment: * Assessment: 1. P alpable abdominal mass - R19.00 (Primary) 2 . I nsect bite (nonvenomous) of lower back and pelvis, initial encounter - S30.860A 3 . B itten or stung by nonvenomous insect and other nonvenomous arthropods, initial encounter - W57.XXXA 4 . D ysuria - R30.0 5 . P elvic pain - R10.2 Plan: * Treatment: 2.?Insect bite (nonvenomous) of lower back and pelvis, initial encounter? Start Triamcinolone Acetonide Cream, 0.1 %, 1 application, Externally, Two times a day, prn, 60 grams, Refills 1.??3.?Dysuria?LAB: Urinalysis - Inhouse (Collection Date & Time - 11/26/2024)* Value Reference Range C olor/Clarity dark * L euk neg * N itrite neg * U robili 3.2 * P rotein neg * p H 5.5 * B lood neg * S p. Gr. 1.030 * K etone neg * B elizabeth neg * G denita neg * GracielaJohana 11/26/2024 05:0 3:58 PM > Provider reviewed results while patient in office.Bailey Yanez 11/26/2024 06:02:56 PM > 4.?Pelvic pain? Referral To:OB - Gynecology ?Reason: * Procedure Codes: 8 1002 Urinalysis, no micro * Follow Up: v ia phone to report test results * Images: Billing Information: * Visit Code: 00713 Office Visit, Est Pt., Level 4. * Procedure Codes: 54391 Urinalysis, no micro. * Electronic signature of JOSUÉ Valdez on 03/09/2025 at 12:14 PM EDT Sign off status: Pending * Provider: JOSUÉ Shelby Date: 0 11/26/2024 Generated for Susan rutledge/Chicho/eTransmitting on: 0 03/09/2025 12:14 PM EDT History and Physical Notes * HPI (History of Present Illness) Category Sub-Category Detail Notes Category Not es Dermatology h/o insect bite Pt is here today for c/o a tick bite. 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 Steinberg in the past and was supposed to have a hysterectomy due to prolapse. She was unable to get the surgery due to loss of insurance Examination Category Sub-Category Detail Notes Category Not es General Examination HEENT: unremarkable Heart: RSR Lungs: clear to auscultatio n Abdomen: bowel sounds present , soft , nontender, mass in the epigastric area that is nontender Extremities: no leg edema General Appearance: NAD Skin: normal, no rash, the re is no tick bite visible, there is an area of dry skin on the mid back that is pruritic Neurologic Exam: Intact, gait normal Neck: supple, no lymphaden opathy Oral cavity: no lesions, mucosa m oist and WNL, no erythema Peripheral pulses: normal (2+) bilatera lly Chest: normal shape and exp ansion Consultation Request Notes Referral Date Referring Provider Referred Provider Not es 11/26/2024 Bailey Yanez ,
--- OUTSIDE RECORDS SUMMARY | 2024-12-18 12:00 | XMS_ITS ---
Author Organization [facility] Address [address] [facility] 36 [facility] [address] [place], [place] [id number] Care Team Providers Care Heel Dipper Name Role Phone Katelyn Resendez [phone] REASON FOR VISIT tick bite Encounters Encounter Location Date Provider Diagnosis [facility] [address] [facility] 36 [facility] [address] [place], [place] [id number] 12/18/2024 Katelyn Resendez Plan Of Treatment Next Appt Details Provider Name:Jenny elizabeth, 03/16/2025 09:30:00 AM, [address] [facility] 36 [facility], [address], [place], [place], [id number], Progress Notes * KASEY HUBBARDDOB:1975 (49 yo F)Acc No.[id number]:12/18/2024 Progress Notes Patient: KASEY BACK Provider: Katelyn Resendez M.D. :1975 A ge:49 Y S ex:Female Date:12/18/2024 Address:[address] [place], [place] [phone] Subjective: * Chief Complaints: * 1 . Tick bite. * Medical History: Objective: * Vitals: Assessment: Plan: * Treatment: * Images: Billing Information: * Visit Code: * Procedure Codes: * Electronic signature of Katelyn Resendez MD on 03/09/2025 at 12:14 PM EDT Sign off status: Pending * Provider: Katelyn Resendez M.D. Date: 0 12/18/2024 Generated for Susan rutledge/Chicho/Aliyahitting on: 0 03/09/2025 12:14 PM EDT
--- OUTSIDE RECORDS SUMMARY | 2025-03-09 12:14 | XMS_ITS | Clinical Summary ---
Author Organization Healthcare Address [address] [place] [address] Care Team Providers Care Trip Follower Name Role Phone Pcp, No Primary Care [...] Date Last Done Comments [facility]-Depression Screening 1975 [facility]-/Child/Adol SDOH Screenings 1975 [facility]- SDOH Screenings 1994 [facility]-Adult SDOH Screenings 1994 [facility]-Hepatitis B Vaccines (1 of 3 - 19+ 3-dose series) 1995 [facility]-Pap Smear 1997 [facility]-Cervical Cancer Screening 2006 [facility]-HPV/Cotest 2006 CT Colonography 2021 Colonoscopy 2021 FIT-DNA 2021 FIT 2021 FOBT 2021 Sigmoidoscopy 2021 [facility]-Colorectal Cancer Screening 2021 [id number]-UOWZM-31 Vaccine (3 - 2023- season) 2024 01/13/2021, 12/16/2020 [facility]-Influenza Vaccine (#1) 03/02/202505/17, 04/12/2017 [facility]-Zoster Vaccines (1 of 2) 2026 [...] complete this topic Insurance CORIN Care Teams Trip Follower Relationship Specialty Start Date End Date Pcp, [place] [address] PCP - General Family Medicine 11/29/21
--- OUTSIDE RECORDS SUMMARY | 2025-03-09 12:14 | XMS_ITS | Patient Health Record ---
Author Organization [facility] Address 1210 [facility] 36 [facility] [address] [place], [place] [id number] Care Team Providers Care Looping Machine Operator Name Role Phone Katelyn Resendezory Unavailable [phone] Grant Jenny Unavailable [phone] Brandon Yaneza Unavailable [phone] Allergies No Known Allergies Results Component Value Reference Range Notes P-Comprehensive Metabolic Pa daja (CMP) Reviewed date:06/30/2024 01:17:38 PM Interpretation:Normal Performing Lab: Notes/Report: Test performed by [facility] , [address], [place] [address] Flavio Walden MD, Mcat Tutor CLIA: [id number] Sodium 141 135-145 mmol/L Potassium 4.8 3.5-5.3 [...] <0.2 <0.2-1.2 mg/dL A/G Ratio 1.5 1.1-2.5 Urinalysis - Inhouse Reviewed date:11/26/2024 06:02:58 PM Interpretation: Performing Lab: Notes/Report: Color/Clarity dark Leuk neg Nitrite neg Urobili 3.2 Protein neg pH 5.5 Blood neg Sp. Gr. 1.030 Ketone neg Bili neg Gluc neg Ultrasound : Abdominal wall Reviewed date:12/25/2024 09:56:34 AM Interpretation: Performing Lab: Notes/Report: Reason For Referral Diagnosis 1 Pelvic pain (R10.2) [facility] Referring Provider First Name Bailey Referring Provider Last Name Beau Referring Provider Speciality Physician Register Repairer Referred Provider Specialty OB - Gynecol ogy [...] in the evening; Duration: 30 days Active Furosemide 40 MG 1/2 tablet Orally On ce a day; Duration: 30 days 03/09/2025 Active Fluticasone Propionate 50 MCG/ACT SPRAY 1 SPRAY INTO EACH NOSTRIL EVERY DAY FOR 30 DAYS; Duration: 30 Active Aspirin 81 MG 1 tab(s) orally At B ed Time; Duration: 30 day(s) 05/31/2022 Active Bisoprolol Fumarate 10 MG 1 tablet Orall y Once a day; Duration: 30 days 03/09/2025 Active Omeprazole 20 MG 1 capsule 1/2 to 1 h our before morning meal Orally Once a day; Duration: 30 days 03/09/2025 Active Immunizations Vaccine Route Administration Date Status Comme nts COVID 19 Moderna Unknown 12/16/2020 Administered COVID 19 Moderna Unknown 01/13/2021 Administered Fluzone PF Quad (6-35 months) Unknown 04/12/2017 Administered Fluzone Quad (6months&older) Unknown 05/17/2018 Administered Fluzone Quad (6months&older) IM Intramuscular 04/26/2023 Administered Hepatitis A (adult) Unknown 05/17/2018 Administered Tetanus Tdap-Adacel (over 7yrs) Unknown 12/12/2018 Administered Problems Problem Type SNOMED Code ICD Code Onset Dates Problem Status W/U Status Risk Notes Problem Hypertension (16794494) HTN (hypertension) (I10) Active confirmed Problem Factor 5 Leiden mutation (394995566) Factor V Leiden (D68.51) Active confirmed Problem Chronic fatigue syndrome (55483304) Chronic fatigue (R53.82) Active confirmed Problem Gastroesophageal reflux disease (disorder) (496333664) Chronic GERD (K21.9) Active confirmed Problem Hyperlipidaemia (92451315) Hyperlipidemia, unspecified hyperlipidemia type (E78.5) Active confirmed Problem Pain in pelvis (19967533) Pelvic pain (R10.2) Active confirmed Problem Allergic rhinitis caused by pollen (17188668) Seasonal allergic rhinitis due to pollen (J30.1) Active confirmed Problem Gynecological examination normal (342996761993274) Well woman exam with routine gynecological exam (Z01.419) Active confirmed Problem Carpal tunnel syndrome (92324157) Carpal tunnel syndrome on both sides (G56.03) Active confirmed Problem Disorder of musculoskeletal system (362448) Right arm weakness (R29.898) Active confirmed Problem Factor V Leiden mutation (101009811) Factor V Leiden mutation (D68.51) Active confirmed Problem Pulmonary hypertension (82191549) Pulmonary hypertension (I27.20) Active confirmed Problem Diastolic dysfunction (2693612) Diastolic dysfunction (I51.89) Active confirmed Problem Primary hypertension (00422246) Primary hypertension (I10) Active confirmed Problem Postprocedural states (975598618) History of carpal tunnel surgery (Z98.890) Active confirmed Vital Signs Heart Rate 80 /min 03/09/2025 Blood pressure diastolic 80 mm Hg 03/09/2025 Height 62 in 03/09/2025 Blood pressure systolic 140 mm Hg 03/09/2025 Weight 238.6 lbs 03/09/2025 BMI 43.64 kg/m2 03/09/2025 Encounters Encounter Location Date Provider Diagnosis [facility] [address] [place] [id number] 06/26/2024 Katelyn Resendez Primary hypertension I10 [facility] [address] [facility] [address] [place], [place] [id number] 11/26/2024 Bailey Yanez Palpable abdominal mass R19.00 ; Insect bite (nonvenomous) of lower back and pelvis, initial encounter S30.860A ; Bitten or stung by nonvenomous insect and other nonvenomous arthropods, initial encounter W57.XXXA ; Dysuria R30.0 and Pelvic pain R10.2 [facility] 1210 [facility] 36 [facility] [address] [place], [place] [id number] 03/09/2025 Jenny Burns Anterior chest wall pain R07.1 ; HTN (hypertension) I10 and Chronic GERD K21.9 [facility] [address] [facility] 36 [facility] [address] [place], [place] [id number] 04/17/2024 Katelyn Resendez Seasonal allergic rhinitis due to pollen J30.1 [facility] 1210 [facility] [address] [place], [place] [id number] 12/04/2024 Bailey Yanez [facility] [address] [facility] 36 [facility] [address] [place], [place] [id number] 12/25/2024 Bailey Yanez Assessments Encounter Date Diagnosis (ICD Code) Assessment Notes Treatment Notes Treatment Clinical Notes Section Notes 04/17/2024 Seasonal allergic rhinitis due to pollen (ICD-10 - J30.1) 06/26/2024 Primary hypertension (ICD-10 - I10) 11/26/2024 Palpable abdominal mass (ICD-10 - R19.00) 03/09/2025 HTN (hypertension) (ICD-10 - I10) 03/09/2025 Anterior chest wall pain (ICD-10 - R07.1) 11/26/2024 Insect bite (nonvenomous) of lower back and pelvis, initial encounter (ICD-10 - S30.860A) 11/26/2024 Bitten or stung by nonvenomous insect and other nonvenomous arthropods, initial encounter (ICD-10 - W57.XXXA) 03/09/2025 Chronic GERD (ICD-10 - K21.9) 11/26/2024 Dysuria (ICD-10 - R30.0) 11/26/2024 Pelvic pain (ICD-10 - R10.2) Plan Of Treatment Pending Test Test Name Order Date colonoscopy 12/04/2024 EKG 03/09/2025 CXR 01/14/2024 CXR 03/09/2025 CBC Venipuncture (in house) 03/09/2025 P-Comprehensive Metabolic Panel (CMP) Next Appt Details Provider Name:Jenny Dickey ond, 03/16/2025 09:30:00 AM, [address], [address], [place], [place], [id number], Insurance Providers Payer Name Payer Address Payer Phone Subscriber Number Group Number Insured Name Patient Relationship to Insured Coverage Start Date Coverage End Date [employer] [address] [place] [address] [id number] KASEY HUBBARD Self - patient is the insured Medical (General) History Medical History History ICD Code Gall bladder disease 2017 Depression/Anxiety - seasonal (fall) Blood clot -right lung Factor 5 positive Surgical History Surgery Date(Month/Year) wisdom teeth extracted 1995 Miscarriage-ablation 2002 Tonsillectomy 2005 Carpal tunnel - both wrists 2006 Essure inserted for control 2009 Cholecystectomy 2017 endometrial ablation 2018 left shoulder -lump 2020 Colonoscopy- Dr Case 2020 Hospitalization History Reason Date(Month/Year) of daughter 03/18/2010 of second son 01/12/2006 Miscarriage -uterine ablation 2002 of first son 10/25/2002
--- NOTE | 2025-03-09 12:33 | XR_ITS ---
FINAL REPORT CLINICAL HISTORY: ANTERIOR CHEST PAIN COMPARISON: 12/21/2022 FINDINGS: PA and lateral views of the chest were obtained. The cardiac and mediastinal silhouettes are within normal limits. The lungs are clear. There is no pleural effusion or pneumothorax. No acute osseous abnormality is identified. IMPRESSION: No radiographic evidence of acute cardiac or pulmonary disease. Reviewed, Interpreted and Dictated by Stacie Duong MD Transcribed by Amanda Jose Authenticated and [facility]
--- NOTE | 2025-03-09 13:05 | ECG_ITS ---
APPROVED REPORT Exam: Resting ECG HR:72 bpm ECG Measurements Heart Rate 72 AXES WY 140 P 50 QRSd 102 QRS 57 QT 422 T 39 QTc 447 Conclusion SINUS RHYTHM NORMAL ECG UNCONFIRMED REPORT Electronically signed by : Palomo Townsend MD 03/09/2025 14:33:48
== END 2025-03-09 23:59 | disposition home or self-care (01) ==
LOC: RAD 12:12
PROVIDERS: PCP Family Medicine; Visit Provider Nurse Practitioner Family
DX: R07.1 Chest pain on breathing (principal)
CPT/HCPCS: 71046; 93005

== ENCOUNTER 2025-03-16 06:46 | Outpatient (CLI) | payer BC, SELFPAY ==
--- OUTSIDE RECORDS SUMMARY | 2024-10-23 12:15 | XMS_ITS ---
Author Organization Renee Address [address] [place] [phone] Care Team Providers Care Revenue Tax Specialist Name Role Phone Katelyn Resendez Unavailable [phone] Allergies No Known Allergies REASON FOR VISIT 4month check up, Needs labs, mammogram, & colon cancer screening Encounters Encounter Location Date Provider Diagnosis [facility] [address] [place] [phone] 10/23/2024 Katelyn Resendez Plan Of Treatment Next Appt Details Provider Name:Jenny elizabeth, 03/16/2025 09:30:00 AM, [facility] [address], [address], [place], [place], [phone], Progress Notes * KASEY HUBBARDDOB:1975 (49 yo F)Acc No.[id number]:10/23/2024 Progress Notes Patient: KASEY BACK Provider: Katelyn Resendez M.D. :1975 A ge:49 Y S ex:Female Date:10/23/2024 Address:[address] [place], [place] [phone] Subjective: * Chief Complaints: * 1 . [...] Electronic signature of Katelyn Resendez MD on 03/16/2025 at 06:48 AM EDT Sign off status: Pending * Provider: Katelyn Resendez M.D. Date: 0 10/23/2024 Generated for Susan rutledge/Chicho/Aliyahitting on: 0 03/16/2025 06:48 AM EDT
--- OUTSIDE RECORDS SUMMARY | 2024-11-26 12:45 | XMS_ITS ---
Author Organization [facility] Address 1210 [facility] 36 [facility] [address] [place] [phone] Care Team Providers Care Camera Assembler Name Role Phone MalKatelynory Unavailable [phone] Bailey Yanez Unavailable [phone] Allergies No Known Allergies Results Component Value [...] Diagnosis 1 Pelvic pain (R10.2) Referral [facility] Referring Provider First Name Bailey Referring Provider Last Name Beau Referring Provider Speciality Physician Review Nurse Referred Provider Specialty OB - Gynecol ogy General Notes Bailey Yanez 04:58:46 PM >Needs an appt with Sharon Greenwood Brynn 11/27/2024 09:20:32 AM > faxed to Dr. Steinberg's office, Fina Herrera 12/01/2024 11:51:39 AM > 12/10/2024 at 08:45am [...] Time; Duration: 30 day(s) 01/04/2024 Active Nystatin 302455 UNIT/GM 1 application Externally Twice a day [...] 11/26/2024 Encounters Encounter Location Date Provider Diagnosis [facility] [address] [facility] [address] [place], [place] [phone] 11/26/2024 Bailey Yanez Palpable abdominal m ass [...] repo rt test results, Reason: Provider Name:Jenny kenrsesequiel, 03/16/2025 09:30:00 AM, [address] [place] [facility] [address], [address] , [place], [place], [phone], Progress Notes * KASEY HUBBARDDOB:1975 (49 yo F)Acc No.[id number]:11/26/2024 Progress Notes Patient: KASEY BACK Provider: JOSUÉ Shelby :1975 A ge:49 Y S ex:Female Date:11/26/2024 Address:[address] [place], [place] [phone] Subjective: * Chief Complaints: * 1 . [...] as needed Inhalation qid , Not-Taking Nystatin 409703 UNIT/GM Ointment 1 application Externally Twice a [...] * Images: Billing Information: * Visit Code: 52743 Office Visit, Est Pt., Level 4. * Procedure Codes: 53331 Urinalysis, no micro. * Electronic signature of JOSUÉ Valdez on 03/16/2025 at 06:48 AM EDT Sign off status: Pending * Provider: JOSUÉ Shelby Date: 0 11/26/2024 Generated for Susan rutledge/Chicho/eTransmitting on: 0 03/16/2025 06:48 AM EDT History and Physical Notes * HPI (History of Present Illness) Category Sub-Category Detail Notes Category Not es Dermatology h/o insect bite Pt is here today for c/o a tick bite. 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 Steinberg [...]
--- OUTSIDE RECORDS SUMMARY | 2024-12-18 12:00 | XMS_ITS ---
Author Organization [facility] Address [address] [facility] 36 [facility] [address] [place], [place] [id number] Care Team Providers Care Warehouse Incentive Selector Name Role Phone Katelyn Resendez [phone] REASON FOR VISIT tick bite Encounters Encounter Location Date Provider Diagnosis [facility] [address] [facility] 36 [facility] [address] [place], [place] [id number] 12/18/2024 Katelyn Resendez Plan Of Treatment Next Appt Details Provider Name:Jenny elizabeth, 03/16/2025 09:30:00 AM, [address] [facility] 36 [facility], [address], [place], [place], [id number], Progress Notes * KASEY HUBBARDDOB:1975 (49 yo F)Acc No.[id number]:12/18/2024 Progress Notes Patient: KASEY BACK Provider: Katelyn Resendez M.D. :1975 A ge:49 Y S ex:Female Date:12/18/2024 Address:[address] [place], [place] [phone] Subjective: * Chief Complaints: * 1 . Tick bite. * Medical History: Objective: * Vitals: Assessment: Plan: * Treatment: * Images: Billing Information: * Visit Code: * Procedure Codes: * Electronic signature of Kaetlyn Resendez MD on 03/16/2025 at 06:48 AM EDT Sign off status: Pending * Provider: Katelyn Resendez M.D. Date: 0 12/18/2024 Generated for Susan rutledge/Chicho/Aliyahitting on: 0 03/16/2025 06:48 AM EDT
--- OUTSIDE RECORDS SUMMARY | 2025-03-09 06:45 | XMS_ITS ---
Author Organization [facility] Address [address] [facility] 36 [facility] [address] [place], [place] [phone] Care Team Providers Care Semiconductor Development Technician Name Role Phone MalKatelyn Agus Unavailable [phone] Jenny Burns Unavailable [phone] Allergies No Known Allergies Results Component Value Reference Range Notes CBC Venipuncture (in house) (Not yet reviewed by provider) Interpretation: Performing Lab: Notes/Report: wbc 8.8 3.5 - 10 lymph 25.8 15 - 50 mid 5.5 2 - 15 gran 86.7 35 - 80 rbc 4.13 3.5 - 5.5 hgb 12.4 11.5 - 16.5 hct 36.7 35 - 55 mcv 89.0 75 - 100 mch 30.1 25 - 35 mchc 33.8 31 - 38 platlet 352 100 - 400 P-Comprehensive Metabolic Pa daja (CMP) (Not yet reviewed by provider) Interpretation: Performing Lab: Notes/Report: Test performed by [facility] [address] [place] [address] , [address], [place] [address] Flavio Walden MD, Tubing Mill Setter CLIA: [id number] Sodium 140 135-145 mmol/L Potassium 4.1 3.5-5.3 mmol/L Chloride 106 97-108 mmol/L CO2 27 20-32 mmol/L Glucose 92 65-99 mg/dL BUN 9 6-20 mg/dL Creatinine 0.57 0.50-1.00 mg/dL Calcium 8.8 8.6-10.4 mg/dL eGFR by Creatinine 112 >59 mL/min/1.73m2 Protein 6.5 6.0-8.3 g/dL Albumin 4.0 3.5-5.3 g/dL Alkaline Phosphatase 92 35-121 IU/L ALT (SGPT) 17 <5-47 IU/L AST (SGOT) 20 <5-40 IU/L Bilirubin, Total 0.4 <0.2-1.2 mg/dL A/G Ratio 1.6 1.1-2.5 EKG (Not yet reviewed by pro vider) Interpretation:Normal Performing Lab: Notes/Report: Normal CXR (Not yet reviewed by pro vider) Interpretation:Negative Performing Lab: Notes/Report: Negative REASON FOR VISIT blood pressure elevated, tightness of chest Medications Medication SIG (Take, Route, Frequency, Duration) Notes Start Date End Date Status Xarelto 20 MG 1 tablet with food O rally Once a day in the evening; Duration: 30 days Active Omeprazole 20 MG 1 capsule 1/2 to 1 h our before morning meal Orally Once a day; Duration: 30 days 03/09/2025 Active Fluticasone Propionate 50 MCG/ACT SPRAY 1 SPRAY INTO EACH NOSTRIL EVERY DAY FOR 30 DAYS; Duration: 30 Active Furosemide 40 MG 1/2 tablet Orally On ce a day; Duration: 30 days 03/09/2025 Active Aspirin 81 MG 1 tab(s) orally At B ed Time; Duration: 30 day(s) 05/31/2022 Active Bisoprolol Fumarate 10 MG 1 tablet Orall y Once a day; Duration: 30 days 03/09/2025 Active Problems Problem Type SNOMED Code ICD Code Onset Dates Problem Status W/U Status Risk Notes Problem Hypertension (20564358) HTN (hypertensi on) (I10) Active confirmed Problem Gastroesophageal reflux disease (disorder) (290560811) Chronic GERD (K21.9) Active confirmed Vital Signs Blood pressure systolic 140 mm Hg 03/09/20 25 Blood pressure diastolic 80 mm Hg 025 Heart Rate 80 /min 03/09/2025 Height 62 in 03/09/2025 Weight 238.6 lbs 03/09/2025 BMI 43.64 kg/m2 03/09/2025 Encounters Encounter Location Date Provider Diagnosis [facility] [address] [place] [id number] 03/09/2025 Jenny Burns Anterior chest wall pain R07.1 ; HTN (hypertension) I10 ; Chronic GERD K21.9 and Factor V Leiden mutation D68.51 Assessments Encounter Date Diagnosis (ICD Code) Assessment Notes Treatment Notes Treatment Clinical Notes Section Notes 03/09/2025 Anterior chest wall pain (ICD-10 - R07.1) she will make appt with cardiology 03/09/2025 HTN (hypertension) (ICD-10 - I10) 03/09/2025 Chronic GERD (ICD-10 - K21.9) 03/09/2025 Factor V Leiden mutation (ICD-10 - D68.51) Plan Of Treatment Medication Medication Name Sig Start Date Stop Date Notes Xarelto 20 MG 1 tablet with food O rally Once a day in the evening; Duration: 30 days Omeprazole 20 MG 1 capsule 1/2 to 1 h our before morning meal Orally Once a day; Duration: 30 days 03/09/2025 Furosemide 40 MG 1/2 tablet Orally On ce a day; Duration: 30 days 03/09/2025 Bisoprolol Fumarate 10 MG 1 tablet Orall y Once a day; Duration: 30 days 03/09/2025 Treatment Notes Assessment Notes Anterior chest wall pain she will make a ppt with cardiology Pending Test Test Name Order Date EKG 03/09/2025 CXR 03/09/2025 CBC Venipuncture (in house) 03/09/2025 P-Comprehensive Metabolic Panel (CMP) Next Appt Details Follow Up: 1 Week, Reason: Provider Name:Jenny Dickey glenn, 03/16/2025 09:30:00 AM, [address] [facility] 36 [facility], [address] [place] [address], [id number], Progress Notes * KASEY HUBBARDDOB:1975 (49 yo F)Acc No.[id number]:03/09/2025 Progress Notes Patient: KASEY BACK Provider: KWASI Chung :1975 A ge:49 Y S ex:Female Date:03/09/2025 Address:[address] [place] [address] Subjective: * Chief Complaints: * 1 . Blood pressure elevated, tightness of chest. * HPI: C ardiology: BP161/101; 134/87; 140/90; 133/88; 109/91; 149/96; has been followed by cardiology in the past; she feels all symptoms are due to her BP. 49 year old female presents with c/o Chest Pain o n/off? pressure . c/o Short of Breath w ith exertion. c/o Palpitations. c/o Leg Edema. c/o Fatigue. c/o Blood Pressure Elevated P t states she has been having high Blood pressure for 3 weeks. Pt states she has been having a headache off and on. Pt states she is having chest pain and can not see right. Pt has a paper with her of her Blood pressure. c/o Headaches. c/o Nausea. * ROS: D ERMATOLOGY: no R michael. n o H brendan. G ASTROENTEROLOGY: no N ausea. n o V omiting. n o D iarrhea.? U ROLOGY: no D ifficulty urinating. n o B lood in urine. * Medical History: G all bladder disease 2016, Depression/Anxiety - seasonal (fall), Blood clot - right lung Factor 5 positive, HTN. * Surgical History: w isdom teeth extracted [...] P aternal Grand Mother: , diagnosed with Stroke, Heart Disease. M aternal Grand Mother: , diagnosed with Cancer. 2 sister(s) . 2 son(s) , 1 daughter(s) . . Mother- leukemia Maternal grand mother liver cancer. * Social History: C URRENT TOBACCO USE: No . C affeine: yes, frequency: soda and/or energy drinks once a day. Alcohol: yes, occasionally. * Medications: T aking Xarelto 20 MG Tablet 1 tablet with food Orally Once a day in the evening , Taking Aspirin 81 MG Tablet Delayed Release 1 tab(s) orally At Bed Time , Taking Fluticasone Propionate 50 MCG/ACT Suspension SPRAY 1 SPRAY INTO EACH NOSTRIL EVERY DAY FOR 30 DAYS , Discontinued Rosuvastatin Calcium 10 MG Tablet 1 tablet Orally At Bed Time , Discontinued Spironolactone 50 MG Tablet 1 tablet Orally Once a day , Discontinued Bisoprolol Fumarate 10 MG Tablet 1 tablet Orally Once a day , Discontinued Furosemide 40 MG Tablet 1/2 Orally Once a day , Discontinued Fexofenadine HCl 180 MG Tablet 1 tab(s) orally once a day , Discontinued Triamcinolone Acetonide 0.1 % Cream 1 application Externally Two times a day, prn , Discontinued Vitamin C 1000 MG Tablet 1 tab(s) orally once a day , Discontinued Vitamin D3 25 MCG Tablet 1 tab(s) orally once a day , Discontinued Lisinopril 5 MG Tablet 1 tab(s) orally once a day , Discontinued Albuterol Sulfate HFA 108 (90 Base) MCG/ACT Aerosol Solution 1 puff as needed Inhalation qid , Discontinued Nystatin 676470 UNIT/GM Ointment 1 application Externally Twice a day , Discontinued metroNIDAZOLE 0.75 % Gel 1 applicatorful at bedtime Vaginal At Bed Time , Discontinued Biotin 5 MG Tablet Disintegrating 2 tab(s) orally once a day , Medication List reviewed and reconciled with the patient * Allergies: N .K.D.A. Objective: * Vitals: W t: 238.6, Temp: 97.9, BP: 140/80, HR: 80, O2 Sat: 96% on RA, Nurse: pratik, Ht: 62, BMI:43.64. * Examination: G eneral Examination: General Appearance: N AD, appears healthy, alert, pleasant, , well nourished and hydrated. H EENT: s clera and conjunctiva clear, PERRLA, TM's normal, translucent. O ral cavity: m ucosa moist and WNL, no erythema. N kevin: s upple, no lymphadenopathy, no carotid bruits. H eart: R RR, no ectopics. L ungs: C TAB A&P.?Neurologic Exam: a lert and oriented, normal cranial nerves II-XII sensory & motor WNL,. E xtremities: b ilateral ankle edema. Assessment: * Assessment: 1. A nterior chest wall pain - R07.1 (Primary) 2 . H TN (hypertension) - I10 3 . C hronic GERD - K21.9 4 . F actor V Leiden mutation - D68.51 Plan: * Treatment: ?Imaging: CXR (Performed Date - 03/09/2025)?Negative Notes: she will make appt with cardiology??2.?HTN (hypertension)? Start Bisoprolol Fumarate Tablet, 10 MG, 1 tablet, Orally, Once a day, 30 days, 30, Refills 5;?Start Furosemide Tablet, 40 MG, 1/2 tablet, Orally, Once a day, 30 days, 15, Refills 5.?LAB: P-Comprehensive Metabolic Panel (CMP) (Collection Date & Time - 03/09/2025 10:52 AM)* Value Reference Range A /G Ratio 1.6 1.1-2.5 - * A lbumin 4.0 3.5-5.3 - g/dL * A lkaline Phosphatase 92 35-121 - IU/L * A LT (SGPT) 17 <5-47 - IU/L * A ST (SGOT) 20 <5-40 - IU/L * B ilirubin, Total 0.4 <0.2-1.2 - mg/dL * B UN 9 6-20 - mg/dL * C alcium 8.8 8.6-10.4 - mg/dL * C hloride 106 97-108 - mmol/L * C O2 27 20-32 - mmol/L * C reatinine 0.57 0.50-1.00 - mg/dL * G lucose 92 65-99 - mg/dL * P otassium 4.1 3.5-5.3 - mmol/L * S odium 140 135-145 - mmol/L * P rotein 6.5 6.0-8.3 - g/dL * e GFR by Creatinine 112 >59 - mL/min/1.73m2 ?LAB: CBC Venipuncture (in house) (Collection Date & Time - 03/09/2025)* Value Reference Range w bc 8.8 3.5 - 10 * l ymph 25.8 15 - 50 * m id 5.5 2 - 15 * g ran 86.7 35 - 80 * r bc 4.13 3.5 - 5.5 * h gb 12.4 11.5 - 16.5 * h ct 36.7 35 - 55 * m cv 89.0 75 - 100 * m ch 30.1 25 - 35 * m chc 33.8 31 - 38 * p latlet 352 100 - 400 * Sarah Carrillo 03/09/2025 12 :50:47 PM EDT > 3.?Chronic GERD? Start Omeprazole Capsule Delayed Release, 20 MG, 1 capsule 1/2 to 1 hour before morning meal, Orally, Once a day, 30 days, 30, Refills 5.??4.?Others? Refill Xarelto Tablet, 20 MG, 1 tablet with food, Orally, Once a day in the evening, 30 days, 30, Refills 5.?? * Procedure Codes: 8 5025 CBC WITH AUTO DIFF, 16476 VENIPUNCT, ROUTINE* * Follow Up: 1 Week * Images: Billing Information: * Visit Code: 60023 Office Visit, Est Pt., Level 4. * Procedure Codes: 60222 CBC WITH AUTO DIFF. 14968 VENIPUNCT, ROUTINE*. * Electronic signature of Alisha Burns APRN on 03/16/2025 at 06:48 AM EDT Sign off status: Pending * Provider: KWASI Chung Date: 0 03/09/2025 Generated for Susan rutledge/Chicho/Enrique on: 0 03/16/2025 06:48 AM EDT History and Physical Notes * HPI (History of Present Illness) Category Sub-Category Detail Notes Category Not es Cardiology Short of Breath with exertion Chest Pain on/off pressure Palpitations Leg Edema Fatigue Blood Pressure Elevated Pt states she aviles s been having high Blood pressure for 3 weeks. Pt states she has been having a headache off and on. Pt states she is having chest pain and can not see right. Pt has a paper with her of her Blood pressure Headaches Nausea Examination Category Sub-Category Detail Notes Category Not es General Examination HEENT: sclera and c onjunctiva clear, PERRLA, TM's normal, translucent Heart: RRR, no ectopics Lungs: CTAB A&P Extremities: bilateral ankle samina a General Appearance: NAD, appears healthy , alert, pleasant, , well nourished and hydrated Neurologic Exam: alert and oriented, normal cranial nerves II-XII sensory & motor WNL, Neck: supple, no lymphaden opathy, no carotid bruits Oral cavity: mucosa moist and WNL , no erythema
--- OUTSIDE RECORDS SUMMARY | 2025-03-16 06:48 | XMS_ITS | Patient Health Record ---
Author Organization [facility] Address [address] [facility] 36 [facility] [address] [place], [place] [id number] Care Team Providers Care Rn Licensed Practical Name Role Phone Katelyn Resendezory Unavailable [phone] Grant Jenny Unavailable [phone] Brandon Yaneza Unavailable [phone] Allergies No Known Allergies Results Component Value Reference Range Notes P-Comprehensive Metabolic Pa daja (CMP) Reviewed date:06/30/2024 01:17:38 PM Interpretation:Normal Performing Lab: Notes/Report: Test performed by [facility] , [address], [place] [address] Flavio Walden MD, Beverage Host CLIA: [id number] Sodium 141 135-145 mmol/L Potassium 4.8 3.5-5.3 [...] <0.2-1.2 mg/dL A/G Ratio 1.5 1.1-2.5 CBC Venipuncture (in house) (Not yet reviewed [...] Interpretation: Performing Lab: Notes/Report: Test performed by [facility] [address] [facility] , [address], [place] [address] Flavio Walden MD, Beverage Host CLIA: [id number] Sodium 140 135-145 mmol/L Potassium 4.1 3.5-5.3 [...] pro vider) Interpretation:Negative Performing Lab: Notes/Report: Negative Urinalysis - Inhouse Reviewed date:11/26/2024 06:02:58 PM Interpretation: Performing Lab: Notes/Report: Color/Clarity dark Leuk neg Nitrite neg Urobili 3.2 Protein neg pH 5.5 Blood neg Sp. Gr. 1.030 Ketone neg Bili neg Gluc neg Ultrasound : Abdominal wall Reviewed date:12/25/2024 09:56:34 AM Interpretation: Performing Lab: Notes/Report: Reason For Referral Diagnosis 1 Pelvic pain (R10.2) Referral Organization [facility] Referring Provider First Name Bailey Referring Provider Last Name Rogerioobinna Referring Provider Speciality Physician [employer] Referred Provider Specialty OB - Gynecol ogy [...] Status W/U Status Risk Notes Problem Hypertension (09708261) HTN (hypertension) (I10) Active confirmed Problem Factor 5 Leiden mutation (005326184) Factor V Leiden (D68.51) Active confirmed Problem Chronic fatigue syndrome (31829429) Chronic fatigue (R53.82) Active confirmed Problem Gastroesophageal reflux disease (disorder) (006139277) Chronic GERD (K21.9) Active confirmed Problem Hyperlipidaemia (16823072) Hyperlipidemia, unspecified hyperlipidemia type (E78.5) Active confirmed Problem Pain in pelvis (82555502) Pelvic pain (R10.2) Active confirmed Problem Allergic rhinitis caused by pollen (44259293) Seasonal allergic rhinitis due to pollen (J30.1) Active confirmed Problem Gynecological examination normal (773838732315722) Well woman exam with routine gynecological exam (Z01.419) Active confirmed Problem Carpal tunnel syndrome (06946507) Carpal tunnel syndrome on both sides (G56.03) Active confirmed Problem Disorder of musculoskeletal system (999803) Right arm weakness (R29.898) Active confirmed Problem Factor V Leiden mutation (453095583) Factor V Leiden mutation (D68.51) Active confirmed Problem Pulmonary hypertension (95734446) Pulmonary hypertension (I27.20) Active confirmed Problem Diastolic dysfunction (3237304) Diastolic dysfunction (I51.89) Active confirmed Problem Primary hypertension (54125488) Primary hypertension (I10) Active confirmed Problem Postprocedural states (316420879) History of carpal tunnel surgery (Z98.890) Active confirmed Vital Signs Heart Rate 80 /min 03/09/2025 Blood pressure diastolic 80 mm Hg 03/09/2025 Height 62 in 03/09/2025 Blood pressure systolic 140 mm Hg 03/09/2025 Weight 238.6 lbs 03/09/2025 BMI 43.64 kg/m2 03/09/2025 Encounters Encounter Location Date Provider Diagnosis [facility] [facility] [facility] 36 [facility] [address] [place], [place] [id number] 06/26/2024 Katelyn Resendez Primary hypertension I10 [facility] [facility] [facility] [address] [facility] [address] [place], [place] [id number] 11/26/2024 Bailey Yanez Palpable abdominal mass R19.00 ; Insect bite (nonvenomous) of lower back and pelvis, initial encounter S30.860A ; Bitten or stung by nonvenomous insect and other nonvenomous arthropods, initial encounter W57.XXXA ; Dysuria R30.0 and Pelvic pain R10.2 [facility] [address] [place], [place] [id number] 03/09/2025 Jenny Burns Anterior chest wall pain R07.1 ; HTN (hypertension) I10 ; Chronic GERD K21.9 and Factor V Leiden mutation D68.51 [facility] [address] [facility] [address] [place], [place] [id number] 04/17/2024 Katelyn Agus Mal Seasonal allergic rhinitis due to pollen J30.1 [facility] [address] [place], [place] [id number] 12/04/2024 Bailey Yanez [facility] [address] [place] [address] [facility] [address] [place], [place] [id number] 12/25/2024 Bailey Yanez Assessments Encounter Date Diagnosis (ICD Code) Assessment Notes Treatment Notes Treatment Clinical Notes Section Notes 03/09/2025 HTN (hypertension) (ICD-10 - I10) 03/09/2025 Anterior chest wall pain (ICD-10 - R07.1) she will make appt with cardiology 11/26/2024 Insect bite (nonvenomous) of lower back and pelvis, initial encounter (ICD-10 - S30.860A) 11/26/2024 Palpable abdominal mass (ICD-10 - R19.00) 04/17/2024 Seasonal allergic rhinitis due to pollen (ICD-10 - J30.1) 06/26/2024 Primary hypertension (ICD-10 - I10) 11/26/2024 Bitten or stung by nonvenomous insect and other nonvenomous arthropods, initial encounter (ICD-10 - W57.XXXA) 03/09/2025 Chronic GERD (ICD-10 - K21.9) 03/09/2025 Factor V Leiden mutation (ICD-10 - D68.51) 11/26/2024 Dysuria (ICD-10 - R30.0) 11/26/2024 Pelvic pain (ICD-10 - R10.2) Plan Of Treatment Pending Test Test Name Order Date colonoscopy 12/04/2024 EKG 03/09/2025 CXR 01/14/2024 CXR 03/09/2025 CBC Venipuncture (in house) 03/09/2025 P-Comprehensive Metabolic Panel (CMP) Next Appt Details Provider Name:Jenny elizabeth, 03/16/2025 09:30:00 AM, [address], [address], [place], [id number], Insurance Providers Payer Name Payer Address Payer Phone Subscriber Number Group Number Insured Name Patient Relationship to Insured Coverage Start Date Coverage End Date [employer] [address] [place] [address] [phone] [id number] KASEY HUBBARD Self - patient is the insured Medical (General) History Medical History History ICD Code Gall bladder disease 2017 Depression/Anxiety - seasonal (fall) Blood clot -right lung Factor 5 positive HTN Surgical History Surgery Date(Month/Year) wisdom teeth extracted 1995 Miscarriage-ablation 2002 Tonsillectomy 2004 Carpal tunnel - both wrists 2006 Essure inserted for control 2009 Cholecystectomy 2017 endometrial ablation 2018 left shoulder -lump 2020 Colonoscopy- Dr Case 2020 Hospitalization History Reason Date(Month/Year) of daughter 03/18/2010 of second son 01/12/2006 Miscarriage -uterine ablation 2002 of first son 10/25/2002
--- OUTSIDE RECORDS SUMMARY | 2025-03-16 06:48 | XMS_ITS | Clinical Summary ---
Author Organization Healthcare Address [address] [place] [address] Care Team Providers Care Agronomy Research Manager Name Role Phone Pcp, No Primary Care [...] Date Last Done Comments [facility]-Depression Screening 1975 [facility]-Infant/Child/Adol SDOH Screenings 1975 [facility]- SDOH Screenings 1994 [facility]-Adult SDOH Screenings 1994 [facility]-Hepatitis B Vaccines (1 of 3 - 19+ 3-dose series) 1995 [facility]-Pap Smear 1997 [facility]-Cervical Cancer Screening 2006 [facility]-HPV/Cotest 2006 CT Colonography 2021 Colonoscopy 2021 FIT-DNA 2021 FIT 2021 FOBT 2021 Sigmoidoscopy 2021 [facility]-Colorectal Cancer Screening 2021 [id number] Vaccine (3 - 2024- season) 2025 01/13/2021, 12/16/2020 [facility]-Influenza Vaccine (#1) 03/02/202505/17, 04/12/2017 [...] complete this topic Insurance [employer]IN Care Teams Agronomy Research Manager Relationship Specialty Start Date End Date Pcp, [place] [address] PCP - General Family Medicine 11/29/21
--- NOTE | 2025-03-16 07:00 | CT_ITS ---
FINAL REPORT TECHNIQUE: Noncontrast exam This study was performed with techniques to keep radiation doses as low as reasonably achievable, (ALARA). Individualized dose reduction techniques using automated exposure control or adjustment of mA and/or kV according to the patient''s size were employed. CLINICAL HISTORY: Slurred speech/Headaches FINDINGS: No abnormal density is seen. Ventricles are normal. There is no hemorrhage. No mass effect is seen. Bone windows show no evidence of fracture. IMPRESSION: No acute findings Reviewed, Interpreted and Dictated by Baylee Doe MD Transcribed by Madonna Franco Authenticated and [facility]
== END 2025-03-16 23:59 | disposition home or self-care (01) ==
PROVIDERS: PCP Family Medicine; Visit Provider Physician Assistant
DX: R47.81 Slurred speech (principal); R42 Dizziness and giddiness; R51.9 Headache, unspecified
CPT/HCPCS: 70450

== ENCOUNTER 2025-04-02 09:26 | Outpatient (CLI) | payer BC, SELFPAY ==
--- OUTSIDE RECORDS SUMMARY | 2024-11-26 12:45 | XMS_ITS ---
Author Organization [facility] Address 1210 [facility] 36 [facility] [address] [place] [phone] Care Team Providers Care Supervisor Tower Name Role Phone MalKatelyn Unavailable [phone] Bailey Yanez Unavailable [phone] Allergies No Known Allergies Results Component Value [...] Diagnosis 1 Pelvic pain (R10.2) Referral [facility] Referring Provider First Name Bailey Referring Provider Last Name Beau Referring Provider Speciality Physician Emissions Inspector Referred Provider Specialty OB - Gynecol ogy [...] Time; Duration: 30 day(s) 01/04/2024 Active Nystatin 196712 UNIT/GM 1 application Externally Twice a day [...] day in the evening Active Vital Signs Weight 236.4 lbs 11/26/2024 Blood pressure systolic 124 mm Hg 11/27/19 25 Blood pressure diastolic 80 mm Hg 025 Heart Rate 104 /min 11/26/2024 Height 62 in 11/26/2024 BMI 43.23 kg/m2 11/26/2024 Encounters Encounter Location Date Provider Diagnosis [facility] [address] [facility] [address] [place], [place] [phone] 11/26/2024 Bailey Yanez Palpable abdominal m ass [...] rt test results, Reason: Provider Name:Jenny kernsesequiel, 04/13/2025 04:15:00 PM, [address] [facility] [address], [address], [place], [place], [phone], Progress Notes * KASEY HUBBARDDOB:1975 (49 yo F)Acc No.[id number]:11/26/2024 Progress Notes Patient: KASEY BACK Provider: JOSUÉ Shelby :1975 A ge:49 Y S ex:Female Date:11/26/2024 Address:[address] [place], [place] [phone] Subjective: * Chief Complaints: * 1 . [...] as needed Inhalation qid , Not-Taking Nystatin 560129 UNIT/GM Ointment 1 application Externally Twice a [...] elizabeth neg * G denita neg * GraciealJohana 11/26/2024 05:0 3:58 PM > Provider reviewed results while patient in office.Bailey Yanez 11/26/2024 06:02:56 PM > 4.?Pelvic pain? Referral To:OB - Gynecology ?Reason: * Procedure Codes: 8 1002 Urinalysis, no micro * Follow Up: v ia phone to report test results * Images: Billing Information: * Visit Code: 96962 Office Visit, Est Pt., Level 4. * Procedure Codes: 15930 Urinalysis, no micro. * Electronic signature of JOSUÉ Valdez on 04/02/2025 at 09:31 AM EDT Sign off status: Pending * Provider: JOSUÉ Shelby Date: 0 11/26/2024 Generated for Susan rutledge/Chicho/eTransmitting on: 1 09:31 AM EDT History and Physical Notes * HPI (History of Present Illness) Category Sub-Category Detail Notes Category Not es Dermatology h/o insect bite Pt is here today for c/o a tick bite. 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 Steinberg [...]
--- OUTSIDE RECORDS SUMMARY | 2024-12-18 12:00 | XMS_ITS ---
Author Organization [facility] Address [address] [place], [place] [phone] Care Team Providers Care Integration Architect Name Role Phone Katelyn Resendez [phone] REASON FOR VISIT tick bite Encounters Encounter Location Date Provider Diagnosis [facility] 1210 [facility] 36 [facility] [address] [place], [place] [id number] 12/18/2024 Katelyn Resendez Plan Of Treatment Next Appt Details Provider Name:Jenny elizabeth, 04/13/2025 04:15:00 PM, [address] [facility] 36 [facility], [address], [place], [place], [id number], Progress Notes * KASEY HUBBARDDOB:1975 (49 yo F)Acc No.[id number]:12/18/2024 Progress Notes Patient: KASEY BACK Provider: Katelyn Resendez M.D. :1975 A ge:49 Y S ex:Female Date:12/18/2024 Address:[address] [place], [place] [phone] Subjective: * Chief Complaints: * 1 . Tick bite. * Medical History: Objective: * Vitals: Assessment: Plan: * Treatment: * Images: Billing Information: * Visit Code: * Procedure Codes: * Electronic signature of Katelyn Resendez MD on 04/02/2025 at 09:31 AM EDT Sign off status: Pending * Provider: Katelyn Resendez M.D. Date: 0 12/18/2024 Generated for Susan rutledge/Chicho/Aliyahitting on: 1 09:31 AM EDT
--- OUTSIDE RECORDS SUMMARY | 2025-03-09 06:45 | XMS_ITS ---
Author Organization [facility] Address [address] [facility] 36 [facility] [address] [place] [id number] Care Team Providers Care Control Panel Operator Crude Unit Name Role Phone MalKatelyn Agus Unavailable [phone] Jenny Burns Unavailable [phone] Allergies No Known Allergies Results Component Value Reference Range Notes CBC Venipuncture (in house) Reviewed date:03/16/2025 09:08:55 AM Interpretation: Performing Lab: Notes/Report: wbc 8.8 3.5 [...] - 400 P-Comprehensive Metabolic Pa daja (CMP) Reviewed date:03/16/2025 09:08:55 AM Interpretation: Performing Lab: Notes/Report: Test performed by [facility] [address] [place] [address] , [address], [place] [address] Flavio Walden MD, Disease Education Specialist CLIA: [id number] Sodium 140 135-145 mmol/L Potassium 4.1 3.5-5.3 [...] <0.2-1.2 mg/dL A/G Ratio 1.6 1.1-2.5 EKG Reviewed date:03/16/2025 09:07:47 AM Interpretation:Normal Performing Lab: Notes/Report: Normal CXR Reviewed date:03/16/2025 09:07:58 AM Interpretation:Negative Performing Lab: Notes/Report: Negative REASON FOR [...] Status W/U Status Risk Notes Problem Hypertension (68118976) HTN (hypertensi on) (I10) Active confirmed Problem Gastroesophageal reflux disease (disorder) (509025714) Chronic GERD (K21.9) Active confirmed Vital Signs Weight 238.6 lbs 03/09/2025 Blood pressure systolic 140 mm Hg 03/09/20 25 Blood pressure diastolic 80 mm Hg 025 Heart Rate 80 /min 03/09/2025 Height 62 in 03/09/2025 BMI 43.64 kg/m2 03/09/2025 Encounters Encounter Location Date Provider Diagnosis Joleen [address] [place], [place] [id number] 03/09/2025 Jenny Burns Anterior chest wall pain [...] she will make a ppt with cardiology Next Appt Details Follow Up: 1 Week, Reason: Provider Name:Jenny el[place], 04/13/2025 04:15:00 PM, [address], [address], [place], [place], [id number], Progress Notes * KASEY HUBBARDDOB:1975 (49 yo F)Acc No.[id number]:03/09/2025 Progress Notes Patient: KASEY BACK Provider: KWASI Chung :1975 A ge:49 Y S ex:Female Date:03/09/2025 Address:[address] [place], [place] [id number] Subjective: * Chief Complaints: * 1 . [...] as needed Inhalation qid , Discontinued Nystatin 404941 UNIT/GM Ointment 1 application Externally Twice a [...] 80, O2 Sat: 96% on RA, Nurse: pe, Ht: 62, BMI:43.64. * Examination: G eneral [...] chc 33.8 31 - 38 * p latriley 352 100 - 400 * Sarah Carrillo [...] Codes: 8 5025 CBC WITH AUTO DIFF, 1036F TOBACCO NON-USER * Follow Up: 1 Week * Images: Billing Information: * Visit Code: 65461 Office Visit, Est Pt., Level 4. * Procedure Codes: 38008 CBC WITH AUTO DIFF. 1036F TOBACCO NON-USER. * Electronic signature of Alisha Burns APRN on 04/02/2025 at 09:31 AM EDT Sign off status: Pending * Provider: KWASI Chung Date: 0 03/09/2025 Generated for Susan rutledge/Chicho/Enrique on: 1 09:31 AM EDT History and [...]
--- OUTSIDE RECORDS SUMMARY | 2025-03-16 05:30 | XMS_ITS ---
Author Organization [facility] Address [address] [facility] 36 [facility] [address] [place] [id number] Care Team Providers Care Handbell Choir Director Name Role Phone MalKatelyn Agus Unavailable [phone] Jenny Burns Unavailable [phone] Allergies No Known Allergies Results Component Value Reference Range Notes P-Lipid Panel Reviewed date:03/18/2025 03:25:48 PM Interpretation:[id number]; HDL 63;TG 82 Performing Lab: Notes/Report: Test performed by [facility], [address] , [address], [place] [address] Flavio Walden MD, Auto Glass Worker CLIA: [id number] Cholesterol 206 <200 mg/dL Triglycerides 82 <150 mg/dL HDL Cholesterol 63 >39 mg/dL Cholesterol / HDL Ratio 3.27 0.00-4.44 Ratio Non-HDL Cholesterol 143 <130 mg/dL LDL Cholesterol (Calculation) 127 <130 mg/dL LDL Cholesterol Levels* Less than 100 mg/dL Optimal 100 to 129 mg/dL Near Optimal/ Above Optimal 130 to 159 mg/dL Borderline High 160 to 189 mg/dL High 190 mg/dL and above Very High * Categories as recommended by the 2004 ATPIII guidelines LDL/HDL Ratio 2.0 <3.3 Ratio LDL Cholesterol Patient History Test Date: 12/27/2023 LDL Results: 130 Units: mg/dL % Change: - Test Date: 03/16/2025 LDL Results: 127 Units: mg/dL % Change: -2% REASON FOR VISIT 1 week Medications Medication SIG (Take, Route, Frequency, Duration) Notes Start Date End Date Status Omeprazole 20 MG 1 capsule 1/2 to 1 h our before morning meal Orally Once a day; Duration: 30 days 03/09/2025 Active Furosemide 40 MG 1/2 tablet Orally On ce a day 03/09/2025 Active Xarelto 20 MG 1 tablet with food O rally Once a day in the evening; Duration: 30 days Active Valsartan 80 MG 1 tablet Orally Once a day Active Bisoprolol Fumarate 10 MG 1 tablet Orall y Once a day 03/09/2025 Active Fluticasone Propionate 50 MCG/ACT SPRAY 1 SPRAY INTO EACH NOSTRIL EVERY DAY FOR 30 DAYS; Duration: 30 Active Aspirin 81 MG 1 tab(s) orally At B ed Time; Duration: 30 day(s) 05/31/2022 Active Immunizations Vaccine Route Administration Date Status Comme nts Fluzone Quad (6months&older) IM Intramuscular 03/16/2025 Administered Problems Problem Type SNOMED Code ICD Code Onset Dates Problem Status W/U Status Risk Notes Problem Neck pain (12356740) Acute neck pain (M54.2) Active confirmed Vital Signs Weight 231.4 lbs 03/16/2025 Blood pressure systolic 142 mm Hg 03/16/20 25 Blood pressure diastolic 86 mm Hg 025 Heart Rate 74 /min 03/16/2025 Height 62 in 03/16/2025 BMI 42.32 kg/m2 03/16/2025 Encounters Encounter Location Date Provider Diagnosis [address] [address] [facility] [address] [place] [id number] 03/16/2025 Jenny Burns Lipid screening Z13.220 ; Cervicogenic headache G44.86 ; Acute neck pain M54.2 ; HTN (hypertension) I10 and Encounter for immunization Z23 Assessments Encounter Date Diagnosis (ICD Code) Assessment Notes Treatment Notes Treatment Clinical Notes Section Notes 03/16/2025 Lipid screening (ICD-10 - Z13.220) 03/16/2025 Cervicogenic headache (ICD-10 - G44.86) 03/16/2025 Acute neck pain (ICD-10 - M54.2) she will try heat/ice application ; had head CT this Am as ordered by cardiology 03/16/2025 HTN (hypertension) (ICD-10 - I10) 03/16/2025 Encounter for immunization (ICD-10 - Z23) Plan Of Treatment Medication Medication Name Sig Start Date Stop Date Notes Furosemide 40 MG 1/2 tablet Orally Once a day 03/09/2025 Valsartan 80 MG 1 tablet Orally Once a day Bisoprolol Fumarate 10 MG 1 tablet Orally Once a day 03/09 Treatment Notes Assessment Notes Acute neck pain she will try heat/ic e application ; had head CT this Am as ordered by cardiology Next Appt Details Follow Up: 4 Weeks,and prn, Reason: Provider Name:Jenny elizabeth, 04/13/2025 04:15:00 PM, [address] [facility] 36 [facility], [address], [place], [id number], Progress Notes * KASEY HUBBARDDOB:1975 (49 yo F)Acc No.[id number]:03/16/2025 Progress Notes Patient: KASEY BACK Provider: KWASI Chung :1975 A ge:49 Y S ex:Female Date:03/16/2025 Address:[address] [place] [address] , [id number] Subjective: * Chief Complaints: * 1 . 1 week. * HPI: C ardiology: was seen by cardiology 03/12/2025 with the following notes: Plan Details Active Problems Reviewed?: Yes Additional Comments: Patient here for follow up Patient weight up 15 lbs Has been having bad headaches 04/10 when went to ER now 09/08 Has been having cp & pressure center of chest Had some slurred speech & vision disturbance SOB with activity Denies Dizziness & lightheadedness Denies Swelling Denies Numbness Denies Fatigue ECHO:(08/2023) Conclusion Normal biventricular systolic function. No significant valvular stenosis or regurgitation CXR: (08/2023)IMPRESSION: No acute cardiopulmonary process. BP elevated today LDL goal is < 100. no LDL on file. Normal cors 2022 Diastolic dysfunction is present. on lasix and spironolactone Moderate pulmonary hypertension is stable. Hx of PE and Factor V Leiden present. a/c Xarelto, denies bleeding. EKG NSR Nonspecific T wave abnormality Rate 65bpm Had not been on BP meds for a year, went to the ER due to headaches. Started back on Bisoprolol and the headache has improved. Plan: Ct head STAT: Slurred speech/Headaches Start Valsartan 80mg RTC 1 week. 49 year old female presents with c/o Blood Pressure Elevated?Pt states she is here for an f/u on Blood Pressure. Pt states she has not been checking it at home. Pt states she is having some symptoms still. Pt is fasting . c/o Headaches. * ROS: M USCULOSKELETAL: Joint pain u pper neck pain. N EUROLOGY: Headache c ontinues with headaches; they are better. ? * Medical History: G all bladder disease 2017, Depression/Anxiety - seasonal (fall), Blood clot - [...] Alcohol: yes, occasionally. * Medications: T aking Valsartan 80 MG Tablet 1 tablet Orally Once a day , Taking Aspirin 81 MG Tablet Delayed Release 1 tab(s) orally At Bed Time , Taking Fluticasone Propionate 50 MCG/ACT Suspension SPRAY 1 SPRAY INTO EACH NOSTRIL EVERY DAY FOR 30 DAYS , Taking Xarelto 20 MG Tablet 1 tablet with food Orally Once a day in the evening , Taking Bisoprolol Fumarate 10 MG Tablet 1 tablet Orally Once a day , Taking Furosemide 40 MG Tablet 1/2 tablet Orally Once a day , Taking Omeprazole 20 MG Capsule Delayed Release 1 capsule 1/2 to 1 hour before morning meal Orally Once a day , Medication List reviewed and reconciled with the patient * Allergies: N .K.D.A. Objective: * Vitals: W t: 231.4, Temp: 97.8, BP: 142/86, HR: 74, Nurse: pe, Ht: 62, BMI:42.32. * P ast Orders: I maging:EKG (Order Date - 03/09/2025) (Performed Date - 03/09/2025) Result: Normal I maging:CXR (Order Date - 03/09/2025) (Performed Date - 03/09/2025) Result: Negative L ab:CBC Venipuncture (in house) (Order Date - 03/09/2025) (Collection Date & Time - 03/09/2025) Value Reference Range wbc 8.8 3.5 - 10 lymph 25.8 15 - 50 mid 5.5 2 - 15 gran 86.7 35 - 80 rbc 4.13 3.5 - 5.5 hgb 12.4 11.5 - 16.5 hct 36.7 35 - 55 mcv 89.0 75 - 100 mch 30.1 25 - 35 mchc 33.8 31 - 38 platlet 352 100 - 400 L ab:P-Comprehensive Metabolic Panel (CMP) (Order Date - 03/09/2025) (Collection Date & Time - 03/09/2025 10:52 AM) Value Reference Range A/G Ratio 1.6 1.1-2.5 - Albumin 4.0 3.5-5.3 - g/dL Alkaline Phosphatase 92 35-121 - IU/L ALT (SGPT) 17 <5-47 - IU/L AST (SGOT) 20 <5-40 - IU/L Bilirubin, Total 0.4 <0.2-1.2 - mg/dL BUN 9 6-20 - mg/dL Calcium 8.8 8.6-10.4 - mg/dL Chloride 106 97-108 - mmol/L CO2 27 20-32 - mmol/L Creatinine 0.57 0.50-1.00 - mg/dL Glucose 92 65-99 - mg/dL Potassium 4.1 3.5-5.3 - mmol/L Sodium 140 135-145 - mmol/L Protein 6.5 6.0-8.3 - g/dL eGFR by Creatinine 112 >59 - mL/min/1.73m2 Clinical Info: room 4 purple * Examination: X ray: CT Scan CT of the head: FINDINGS: No abnormal density is seen. Ventricles are normal. There is no hemorrhage. No mass effect is seen. Bone windows show no evidence of fracture. IMPRESSION: No acute findings. G eneral Examination: General Appearance: N AD, appears healthy, alert, well nourished and hydrated. H eart: R RR. L ungs: C TAB A&P. N eurologic Exam: a lert and oriented. E xtremities: n o leg edema. Assessment: * Assessment: 1. L ipid screening - Z13.220 (Primary) 2 . C ervicogenic headache - G44.86? 3. A cute neck pain - M54.2 4 . H TN (hypertension) - I10? 5. E ncounter for immunization - Z23 Plan: * Treatment: Value Reference Range C holesterol / HDL Ratio 3.27 0.00-4.44 - Ratio * C holesterol 206 H <200 - mg/dL * H DL Cholesterol 63 >39 - mg/dL * L DL Cholesterol (Calculation) 127 <130 - mg/d L * L DL/HDL Ratio 2.0 <3.3 - Ratio * N on-HDL Cholesterol 143 H <130 - mg/dL * T riglycerides 82 <150 - mg/dL * Jenny Burns 03/18/2025 03:25:29 PM EDT >I spoke with pt and reported results 2.?Acute neck pain? Notes: she will try heat/ice application ; had head CT this Am as ordered by cardiology??3.?HTN (hypertension)? Continue Valsartan Tablet, 80 MG, 1 tablet, Orally, Once a day;?Continue Bisoprolol Fumarate Tablet, 10 MG, 1 tablet, Orally, Once a day;?Continue Furosemide Tablet, 40 MG, 1/2 tablet, Orally, Once a day.?? * Immunizations: Fluzone Quad (6months&older) : 0.5 mL (Route: Intramuscular) given by DORIE Arellano , Digestion Operator on Right Deltoid (Encounter for immunization) * Procedure Codes: 3 077F SYST BP = 140 MM HG6 IT, 3079F DIAST BP 80-89 MM HG * Follow Up: 4 Weeks,and prn * Images: Billing Information: * Visit Code: 10026 Office Visit, Est Pt., Level 3. * Procedure Codes: 3077F SYST BP = 140 MM HG6 IT. 3079F DIAST BP 80-89 MM HG. * Electronic signature of Alisha Burns APRN on 04/02/2025 at 09:31 AM EDT Sign off status: Pending * Provider: KWASI Chung Date: 0 03/16/2025 Generated for Susan rutledge/Chicho/Enrique on: 1 09:31 AM EDT History and Physical Notes * HPI (History of Present Illness) Category Sub-Category Detail Notes Category Not es Cardiology Blood Pressure Elevated Pt state s she is here for an f/u on Blood Pressure. Pt states she has not been checking it at home. Pt states she is having some symptoms still. Pt is fasting Headaches Examination Category Sub-Category Detail Notes Category Not es General Examination Heart: RRR Lungs: CTAB A&P Extremities: no leg edema General Appearance: NAD, appears healthy , alert, well nourished and hydrated Neurologic Exam: alert and oriented X ray CT Scan 03/16/2025 CT of the head: FINDINGS: No abnormal density is seen. Ventricles are normal. There is no hemorrhage. No mass effect is seen. Bone windows show no evidence of fracture. IMPRESSION: No acute findings
--- OUTSIDE RECORDS SUMMARY | 2025-03-23 04:55 | XMS_ITS ---
Author Organization [facility] Address [address] [place] [address] [address] [place], [place] [id number] Care Team Providers Care Doors Prefitter Name Role Phone Katelyn Resendez [phone] REASON FOR VISIT due ammta Encounters Encounter Location Date Provider Diagnosis [facility] [facility] 36 [facility] [address] [place], [place] [id number] 03/23/2025 Katelyn Resendez Breast cancer screening Z12.31 Assessments Encounter Date Diagnosis (ICD Code) Assessment Notes Treatment Notes Treatment Clinical Notes Section Notes 03/23/2025 Breast cancer screening (ICD-10 - Z12.31) Plan Of Treatment Pending Test Test Name Order Date Mammogram 03/23/2025 Next Appt Details Provider Name:Jenny elizabeth, 04/13/2025 04:15:00 PM, [address] [facility] 36 [facility], [address], [place], [place], [id number], Progress Notes * KASEY HUBBARDDOB:1975 (49 yo F)Acc No.[id number]:03/23/2025 Patient: KASEY BACK :1975 A ge:49 Y S ex:Female Address:[address] [place] [address] , [place], [address] Subjective: * Chief Complaints: * D ue mamta * Medical History: * Surgical History: * Hospitalization/Major Diagno stic Procedure: * Medications: Objective: * Vitals: * Physical Examination: Assessment: * Assessment: 1. B reast cancer screening - Z12.31 (Primary) Plan: * Treatment: * Procedure Codes: * true * Date: Generated for Susan rutledge/Chicho/Enrique on: 09:30 AM EDT
--- OUTSIDE RECORDS SUMMARY | 2025-04-02 09:31 | XMS_ITS | Patient Health Record ---
Author Organization [facility] Address [address] [facility] 36 [facility] [address] [place], [place] [address] Care Team Providers Care Pickling Machine Operator Name Role Phone Katelyn Resendezory Unavailable [phone] Grant Jenny Unavailable [phone] Beau Bailey Unavailable [phone] Allergies No Known Allergies Results Component Value [...] Interpretation: Performing Lab: Notes/Report: Test performed by [facility] , [address], [place] [address] Flavio Walden MD, Skoog Machine Operator CLIA: [id number] Sodium 140 135-145 mmol/L Potassium 4.1 3.5-5.3 [...] 09:07:58 AM Interpretation:Negative Performing Lab: Notes/Report: Negative P-Lipid Panel Reviewed date:03/18/2025 03:25:48 PM Interpretation:[id number]; HDL 63;TG 82 Performing Lab: Notes/Report: Test performed by [facility], [address] , [place] [address] Flavio Walden MD, Skoog Machine Operator CLIA: [id number] Cholesterol 206 <200 mg/dL Triglycerides 82 <150 [...] Results: 127 Units: mg/dL % Change: -2% P-Comprehensive Metabolic Pa daja (CMP) Reviewed date:06/30/2024 01:17:38 PM Interpretation:Normal Performing Lab: Notes/Report: Test performed by [facility] [address] [place] [address] , [address], [place] [address] Flavio Walden MD, Skoog Machine Operator CLIA: [id number] Sodium 141 135-145 mmol/L Potassium 4.8 3.5-5.3 [...] Diagnosis 1 Pelvic pain (R10.2) [facility] Referring Provider First Name Bailey Referring Provider Last Name Beau Referring Provider Speciality Physician Cesspool Cleaner Referred Provider Specialty OB - Gynecol ogy [...] in the evening; Duration: 30 days Active Fluticasone Propionate 50 MCG/ACT SPRAY 1 SPRAY INTO EACH NOSTRIL EVERY DAY FOR 30 DAYS; Duration: 30 Active Valsartan 80 MG 1 tablet Orally Once a day Active Aspirin 81 MG 1 tab(s) orally At B ed Time; Duration: 30 day(s) 05/31/2022 Active Bisoprolol Fumarate 10 MG 1 tablet Orall y Once a day 03/09/2025 Active Immunizations Vaccine Route Administration Date Status Comme nts Tetanus Tdap-Adacel (over 7yrs) Unknown 12/12/2018 Administered Hepatitis A (adult) Unknown 05/17/2018 Administered Fluzone Quad (6months&older) Unknown 05/17/2018 Administered Fluzone Quad (6months&older) IM Intramuscular 04/26/2023 Administered Fluzone Quad (6months&older) IM Intramuscular 03/16/2025 Administered Fluzone PF Quad (6-35 months) Unknown 04/12/2017 Administered COVID 19 Moderna Unknown 12/16/2020 Administered COVID 19 Moderna Unknown 01/13/2021 Administered Problems Problem Type SNOMED Code ICD Code Onset Dates Problem Status W/U Status Risk Notes Problem Hypertension (93603428) HTN (hypertension) (I10) Active confirmed Problem Factor 5 Leiden mutation (267034145) Factor V Leiden (D68.51) Active confirmed Problem Neck pain (56029179) Acute neck pain (M54.2) Active confirmed Problem Chronic fatigue syndrome (34341804) Chronic fatigue (R53.82) Active confirmed Problem Gastroesophageal reflux disease (disorder) (398145562) Chronic GERD (K21.9) Active confirmed Problem Hyperlipidaemia (48744482) Hyperlipidemia, unspecified hyperlipidemia type (E78.5) Active confirmed Problem Pain in pelvis (59324356) Pelvic pain (R10.2) Active confirmed Problem Allergic rhinitis caused by pollen (42518191) Seasonal allergic rhinitis due to pollen (J30.1) Active confirmed Problem Gynecological examination normal (478574323823260) Well woman exam with routine gynecological exam (Z01.419) Active confirmed Problem Carpal tunnel syndrome (49552439) Carpal tunnel syndrome on both sides (G56.03) Active confirmed Problem Disorder of musculoskeletal system (709536) Right arm weakness (R29.898) Active confirmed Problem Factor V Leiden mutation (661885105) Factor V Leiden mutation (D68.51) Active confirmed Problem Pulmonary hypertension (43953732) Pulmonary hypertension (I27.20) Active confirmed Problem Diastolic dysfunction (7161489) Diastolic dysfunction (I51.89) Active confirmed Problem Primary hypertension (23800014) Primary hypertension (I10) Active confirmed Problem Postprocedural states (022837028) History of carpal tunnel surgery (Z98.890) Active confirmed Vital Signs Heart Rate 74 /min 03/16/2025 Blood pressure diastolic 86 mm Hg 03/16/2025 Height 62 in 03/16/2025 Blood pressure systolic 142 mm Hg 03/16/2025 Weight 231.4 lbs 03/16/2025 BMI 42.32 kg/m2 03/16/2025 Encounters Encounter Location Date Provider Diagnosis [facility] [address] [facility] [address] [facility] [address] [place], [place] [id number] 06/26/2024 Katelyn Resendez Primary hypertension I10 [facility] [address] [facility] 36 [facility] [address] [place], [place] [id number] 11/26/2024 Bailey Yanez Palpable abdominal mass R19.00 ; Insect bite (nonvenomous) of lower back and pelvis, initial encounter S30.860A ; Bitten or stung by nonvenomous insect and other nonvenomous arthropods, initial encounter W57.XXXA ; Dysuria R30.0 and Pelvic pain R10.2 [facility] [address] [facility] [address] [place], [place] [id number] 03/09/2025 Jenny Burns Anterior chest wall pain R07.1 ; HTN (hypertension) I10 ; Chronic GERD K21.9 and Factor V Leiden mutation D68.51 [facility] 12[address] [facility] [address] [place] [id number] 03/16/2025 Jenny Burns Lipid screening Z13.220 ; Cervicogenic headache G44.86 ; Acute neck pain M54.2 ; HTN (hypertension) I10 and Encounter for immunization Z23 [facility] [address] [facility] [address] [place], [place] [id number] 04/17/2024 Katelyn Resendez Seasonal allergic rhinitis due to pollen J30.1 [facility] [address] [facility] 36 [facility] [address] [place], [place] [id number] 12/04/2024 Bailey [facility] [address] [facility] 36 [facility] [address] [place], [place] [id number] 12/25/2024 Bailey [facility] [address] [facility] 36 [facility] [address] [place], [place] [id number] 03/23/2025 Katelyn Resendez Breast cancer screening Z12.31 [...] and pelvis, initial encounter (ICD-10 - S30.860A) 03/16/2025 Lipid screening (ICD-10 - Z13.220) 03/16/2025 Cervicogenic headache (ICD-10 - G44.86) 03/23/2025 Breast cancer screening (ICD-10 - Z12.31) 03/16/2025 Acute neck pain (ICD-10 - M54.2) she will try heat/ice application ; had head CT this Am as ordered by cardiology 11/26/2024 Bitten or stung by nonvenomous insect and other nonvenomous arthropods, initial encounter (ICD-10 - W57.XXXA) 03/09/2025 Chronic GERD (ICD-10 - K21.9) 03/09/2025 Factor V Leiden mutation (ICD-10 - D68.51) 03/16/2025 HTN (hypertension) (ICD-10 - I10) 11/26/2024 Dysuria (ICD-10 - R30.0) 11/26/2024 Pelvic pain (ICD-10 - R10.2) 03/16/2025 Encounter for immunization (ICD-10 - Z23) Plan Of Treatment Pending Test Test Name Order Date colonoscopy 12/04/2024 CXR 01/14/2024 Mammogram 03/23/2025 Next Appt Details Provider Name:Jenny elizabeth, 04/13/2025 04:15:00 PM, [address], [address], [place], [place], [id number], Insurance Providers Payer Name Payer Address Payer Phone Subscriber Number Group Number Insured Name Patient Relationship to Insured Coverage Start Date Coverage End Date [employer] [address] [place] [address] [phone] [id number] KASEY HUBBARD Self - patient is the insured Medical (General) History Medical History History ICD Code Gall bladder disease 2017 Depression/Anxiety - seasonal (fall) Blood clot -right lung Factor 5 positive HTN Surgical History Surgery Date(Month/Year) wisdom teeth extracted 1995 Miscarriage-ablation 2002 Tonsillectomy 2004 Carpal tunnel - both wrists 2006 Essure inserted for control 2009 Cholecystectomy 2016 endometrial ablation 2018 left shoulder -lump 2020 Colonoscopy- Dr Case 2020 Hospitalization History Reason Date(Month/Year) of daughter 03/18/2010 of second son 01/12/2006 Miscarriage -uterine ablation 2002 of first son 10/25/2002
[2025-04-02 10:43] LABS: Anion Gap 11.4 mEq/L (5-15); Blood Urea Nitrogen 9 mg/dl (7-17); Calcium 8.9 mg/dl (8.4-10.2); Carbon Dioxide 27 mmol/L (22.0-30.0); Chloride 104 mmol/L (98-107); Creatinine,Serum 0.60 mg/dl (0.52-1.04); Estimated Glomerular Filt Rate 107 ml/min (>60); GFR (African American) 129 ML/MIN (>60); Glucose 85 mg/dl (74-100); Magnesium 1.7 mg/dl (1.6-2.3); Potassium 3.4 mmoL/L (3.5-5.1); Sodium 139 mmol/L (136-145)
== END 2025-04-02 23:59 | disposition home or self-care (01) ==
LOC: LAB 09:27
PROVIDERS: PCP Family Medicine; Visit Provider Physician Assistant
DX: I27.20 Pulmonary hypertension, unspecified (principal)
CPT/HCPCS: 36415; 80048; 83735